=== PATIENT | male | born 1950 | race Caucasian/White ===

== ENCOUNTER 2018-04-02 00:34 | Outpatient (CLI) | payer MEDICARE, BC, SELFPAY ==
--- NOTE | 2018-04-02 07:05 | DI.US_ITS ---
SYMPTOM/DIAGNOSIS: RT SIDED ABD SWELLING, R19.00 ABDOMEN ULTRASOUND: Routine examination was performed. The aorta and IVC are unremarkable. There is diffuse increased echogenicity of the liver consistent with hepatic steatosis. No hepatic mass is seen. The liver is enlarged measuring 20 cm. The gallbladder is negative. There is no biliary ductal dilatation. The common duct is within normal limits at .4 cm. The pancreas and spleen are unremarkable. The kidneys are unremarkable except for a 0.8 cm. simple cyst arising from the mid pole. This was present on the CT scan of the abdomen and pelvis from . The right lateral abdominal wall was evaluated sonographically. No cystic or solid masses are seen. IMPRESSION: Hepatomegaly. Hepatic steatosis.
== END 2018-04-02 00:54 ==
PROVIDERS: PCP Nurse Practitioner Family; Visit Provider Nurse Practitioner Family
DX: K76.0 Fatty (change of) liver, not elsewhere classified (principal); R16.0 Hepatomegaly, not elsewhere classified; R19.00 Intra-abdominal and pelvic swelling, mass and lump, unspecified site
CPT/HCPCS: 76700

== ENCOUNTER 2018-04-04 14:12 | Inpatient (IN) | payer MEDICARE, BC, SELFPAY ==
[2018-04-04] VITALS (59 sets, daily range): BP systolic 115–160; BP diastolic 66–92; PULSE 51–185; RESP 12–22; TEMP 36.1–36.7; O2SAT 89–98
--- NOTE | 2018-04-04 14:25 | W.ED.GENAD ---
Discharge Plan Disposition Patient Disposition: [facility] INPATIENT Condition: Serious Discharge Details Chief Complaint: Chest Pain Clinical Impression: Supraventricular tachycardia, Hypomagnesemia, Chest pain Primary Care Provider: Ashanti Delgadillo ED Provider: Jhony Charlton Home Meds and New Rx's Prescriptions: No Action uazgwpdv-qgwlp-ojs 2-C-D3-paolo [Xsxbxjbc-Iuntdw-DFR with vit D] 1 EACH tablet 2 ea PO DAILY RF: 0 ibuprofen [Advil] 200 MG tablet 800 mg PO TID PRNRF: 0 omega-3 fatty acids-fish oil [Fish Oil] 1 EACH capsule 1 ea PO TID Qty: 90 RF: 3 aspirin 81 MG tablet,delayed release (DR/EC) 81 mg PO DAILY RF: 0 sildenafil (antihypertensive) 20 MG tablet 20 mg PO DAILY PRNQty: 10 RF: 0 blood-glucose meter 1 EACH misc 1 ea Miscellaneous DAILY Qty: 1 RF: 0 blood sugar diagnostic [Blood Glucose Test] 1 EACH strip 1 ea Miscellaneous DAILY Qty: 100 RF: 3 lancets 1 EACH misc 1 ea Miscellaneous DAILY Qty: 100 RF: 3 losartan-hydrochlorothiazide 1 EACH tablet 1 tab-cap PO DAILY Qty: 90 RF: 3 gabapentin 800 MG tablet 800 mg PO as directed Qty: 360 RF: 3 atorvastatin 80 MG tablet 80 mg PO DAILY Qty: 90 RF: 3 cholecalciferol (vitamin D3) 5,000 UNIT capsule 2 tab PO DAILY RF: 0 Medical Decision Making 14:30 --patient seen immediately on arrival. 67-year-old male with history of hypertension and diabetes here with chest discomfort, palpitations, dizziness and shortness of breath. Patient was noted to be in a regular narrow complex tachycardia with heart rate in the 180s on bedside personnel monitor. Rhythm consistent with SVT. Patient had significant stress related to IV placement and I believe spontaneously cardioverted himself by vagaling. Transition from supraventricular tachycardia to sinus rhythm captured on monitor. ecg post spontaneous cardioversion reviewed and interpreted by me: Sinus tachycardia 107 bpm, left axis, no STEMI, nondiagnostic. Patient is quite anxious and notes history of white coat syndrome, plan to treat with anxiolytic Ativan 1 mg IV. 15:45 --labs reviewed and hypomagnesemia noted. Will give 1 g IV magnesium. D-dimer is elevated. Plan for CTA. 18:35 --CT head interpreted by radiology: No evidence of pulmonary embolism, no dissection, or other acute cardiopulmonary abnormality, mild atherosclerotic disease, to include coronary artery disease, diffuse hepatic steatosis, colonic diverticulosis, tiny low density nodule located in left lobe of thyroid, peripheral linear and groundglass opacities are consistent with atelectasis/scarring. Plan to admit to the hospitalist service for further diagnostic workup to include serial cardiac enzymes. Still unclear etiology for SVT but hypomagnesemia may have contributed. HPI General Mode of arrival: ambulatory. Date/Time Provider Initiated Documentation: 04/04/18 14:17. Limitations to Documentation: no limitations. Information obtained by: patient. HPI Narrative: 67-year-old male with history of diabetes and hypertension, presents with chief complaint of chest pain. Patient notes chest discomfort described as pressure for the past 1-2 hours. Symptoms are persistent and constant. He has associated shortness of breath and dizziness. He also notes palpitations. Symptoms occurred at rest. No modifiers. Related Data Home Medications Medication Instructions Recorded Confirmed wmtcyqre-mkbll-iot 2-C-D3-paolo 2 ea PO DAILY 11/30/12 04/04/18 [Baixdgvnmv-Ntdjseystte-Dsw Tab] ibuprofen [Advil] 800 mg PO TID PRN tab 06/17/13 04/04/18 omega-3 fatty acids-fish oil [Fish 1 ea PO TID #90 tab-cap 09/18/15 04/04/18 Oil 1,000 Mg Capsule] aspirin 81 mg PO DAILY tab 07/22/16 04/04/18 cholecalciferol (vitamin D3) 2 tab PO DAILY 01/09/17 04/04/18 sildenafil (antihypertensive) 20 mg PO DAILY PRN #10 tab-cap 03/12/17 04/01/18 blood sugar diagnostic [Glucose #100 strip 08/24/17 04/01/18 Test Strip] blood-glucose meter #1 unit 08/24/17 04/01/18 lancets #100 ea 08/24/17 04/01/18 losartan-hydrochlorothiazide 1 tab-cap PO DAILY #90 tab-cap 10/30/17 04/04/18 gabapentin 800 mg PO as directed #360 tab-cap 12/31/17 04/04/18 atorvastatin 80 mg PO DAILY #90 tab-cap 01/08/18 04/04/18 Previous Rx's Medication Instructions Recorded blood sugar diagnostic [Glucose #100 strip 08/24/17 Test Strip] blood-glucose meter #1 unit 08/24/17 lancets #100 ea 08/24/17 losartan-hydrochlorothiazide 1 tab-cap PO DAILY #90 tab-cap 10/30/17 gabapentin 800 mg PO as directed #360 tab-cap 12/31/17 atorvastatin 80 mg PO DAILY #90 tab-cap 01/08/18 Allergies Allergy/AdvReac Type Severity Reaction Status Date / Time Penicillins Allergy Unknown childhood Unverified 04/04/18 14:32 reaction diltiazem AdvReac Intermediate Swelling/Ed Unverified 04/04/18 14:32 harish lisinopril AdvReac Unknown unknown Unverified 04/04/18 14:32 Review of Systems Review of Systems All systems reviewed & are unremarkable except as noted in HPI and below Cardiovascular Reports as per HPI, Reports chest pain, Reports palpitations and Reports dyspnea Respiratory Reports as per HPI and Reports dyspnea Endocrine Reports palpitations Exam Const General: cooperative and acute distress [facility] Head: normocephalic and atraumatic Mouth: moist mucous membranes Eyes Conjunctivae: normal conjunctivae Sclera: normal sclerae EOM: EOM intact bilaterally Neck Neck: trachea midline and supple Resp Auscultation: clear to auscultation bilaterally, no rales, no rhonchi and no wheezes Cardio Jugular venous pressure: no JVD Rate: regular rate and tachycardic (180) Rhythm: regular rhythm GI Palpation: soft, not firm, no guarding, no masses, not rigid and nontender Skin General skin exam: no rashes or lesions noted Neuro General: alert, awake, oriented x3 and tone normal Extrem General: no edema Psych Appearance: grossly normal Mental Status: mental status grossly normal Speech and Movement: speech and movement normal Mood: anxious mood
--- NOTE | 2018-04-04 14:29 | ED.GENADUL_ITS ---
Discharge Plan Disposition Patient Disposition: [facility] INPATIENT Condition: Serious Discharge Details Chief Complaint: Chest Pain Clinical Impression: Supraventricular tachycardia, Hypomagnesemia, Chest pain Primary Care Provider: Ashanti Delgadillo ED Provider: Jhony Charlton Home Meds and New Rx's Prescriptions: No Action fdjejbgg-ighbr-eyw 2-C-D3-paolo [Uymelgqi-Ostpwc-KCD with vit D] 1 EACH tablet 2 ea PO DAILY RF: 0 ibuprofen [Advil] 200 MG tablet 800 mg PO TID PRNRF: 0 omega-3 fatty acids-fish oil [Fish Oil] 1 EACH capsule 1 ea PO TID Qty: 90 RF: 3 aspirin 81 MG tablet,delayed release (DR/EC) 81 mg PO DAILY RF: 0 sildenafil (antihypertensive) 20 MG tablet 20 mg PO DAILY PRNQty: 10 RF: 0 blood-glucose meter 1 EACH misc 1 ea Miscellaneous DAILY Qty: 1 RF: 0 blood sugar diagnostic [Blood Glucose Test] 1 EACH strip 1 ea Miscellaneous DAILY Qty: 100 RF: 3 lancets 1 EACH misc 1 ea Miscellaneous DAILY Qty: 100 RF: 3 losartan-hydrochlorothiazide 1 EACH tablet 1 tab-cap PO DAILY Qty: 90 RF: 3 gabapentin 800 MG tablet 800 mg PO as directed Qty: 360 RF: 3 atorvastatin 80 MG tablet 80 mg PO DAILY Qty: 90 RF: 3 cholecalciferol (vitamin D3) 5,000 UNIT capsule 2 tab PO DAILY RF: 0 Medical Decision Making 14:30 --patient seen immediately on arrival. 67-year-old male with history of hypertension and diabetes here with chest discomfort, palpitations, dizziness and shortness of breath. Patient was noted to be in a regular narrow complex tachycardia with heart rate in the 180s on bedside engine monitor. Rhythm consistent with SVT. Patient had significant stress related to IV placement and I believe spontaneously cardioverted himself by vagaling. Transition from supraventricular tachycardia to sinus rhythm captured on monitor. ecg post spontaneous cardioversion reviewed and interpreted by me: Sinus tachycardia 107 bpm, left axis, no STEMI, nondiagnostic. Patient is quite anxious and notes history of white coat syndrome, plan to treat with anxiolytic Ativan 1 mg IV. 15:45 --labs reviewed and hypomagnesemia noted. Will give 1 g IV magnesium. D-dimer is elevated. Plan for CTA. 18:35 --CT head interpreted by radiology: No evidence of pulmonary embolism, no dissection, or other acute cardiopulmonary abnormality, mild atherosclerotic disease, to include coronary artery disease, diffuse hepatic steatosis, colonic diverticulosis, tiny low density nodule located in left lobe of thyroid, peripheral linear and groundglass opacities are consistent with atelectasis/ scarring. Plan to admit to the hospitalist service for further diagnostic workup to include serial cardiac enzymes. Still unclear etiology for SVT but hypomagnesemia may have contributed. HPI General Mode of arrival: ambulatory . Date/Time Provider Initiated Documentation: 04/04/18 14:17 . Limitations to Documentation: no limitations . Information obtained by: patient . HPI Narrative: 67-year-old male with history of diabetes and hypertension, presents with chief complaint of chest pain. Patient notes chest discomfort described as pressure for the past 1-2 hours. Symptoms are persistent and constant. He has associated shortness of breath and dizziness. He also notes palpitations. Symptoms occurred at rest. No modifiers. Related Data Home Medications Medication Instructions Recorded Confirmed spoyhzwh-udozi-dqd 2-C-D3-paolo 2 ea PO DAILY 11/30/12 04/04/18 [Oxlkejembj-Eppjhfwcefc-Lun Tab] ibuprofen [Advil] 800 mg PO TID PRN tab 06/17/13 04/04/18 omega-3 fatty acids-fish oil [Fish 1 ea PO TID #90 tab-cap 09/18/15 04/04/18 Oil 1,000 Mg Capsule] aspirin 81 mg PO DAILY tab 07/22/16 04/04/18 cholecalciferol (vitamin D3) 2 tab PO DAILY 01/09/17 04/04/18 sildenafil (antihypertensive) 20 mg PO DAILY PRN #10 tab-cap 03/12/17 04/01/18 blood sugar diagnostic [Glucose #100 strip 08/24/17 04/01/18 Test Strip] blood-glucose meter #1 unit 08/24/17 04/01/18 lancets #100 ea 08/24/17 04/01/18 losartan-hydrochlorothiazide 1 tab-cap PO DAILY #90 tab-cap 10/30/17 04/04/18 gabapentin 800 mg PO as directed #360 tab-cap 12/31/17 04/04/18 atorvastatin 80 mg PO DAILY #90 tab-cap 01/08/18 04/04/18 Previous Rx's Medication Instructions Recorded blood sugar diagnostic [Glucose #100 strip 08/24/17 Test Strip] blood-glucose meter #1 unit 08/24/17 lancets #100 ea 08/24/17 losartan-hydrochlorothiazide 1 tab-cap PO DAILY #90 tab-cap 10/30/17 gabapentin 800 mg PO as directed #360 tab-cap 12/31/17 atorvastatin 80 mg PO DAILY #90 tab-cap 01/08/18 Allergies Allergy/AdvReac Type Severity Reaction Status Date / Time Penicillins Allergy Unknown childhood Unverified 04/04/18 14:32 reaction diltiazem AdvReac Intermediate Swelling/Ed Unverified 04/04/18 14:32 harish lisinopril AdvReac Unknown unknown Unverified 04/04/18 14:32 Review of Systems Review of Systems All systems reviewed & are unremarkable except as noted in HPI and below Cardiovascular Reports as per HPI, Reports chest pain, Reports palpitations and Reports dyspnea Respiratory Reports as per HPI and Reports dyspnea Endocrine Reports palpitations Exam Const General: cooperative and acute distress [facility] Head: normocephalic and atraumatic Mouth: moist mucous membranes Eyes Conjunctivae: normal conjunctivae Sclera: normal sclerae EOM: EOM intact bilaterally Neck Neck: trachea midline and supple Resp Auscultation: clear to auscultation bilaterally, no rales, no rhonchi and no wheezes Cardio Jugular venous pressure: no JVD Rate: regular rate and tachycardic (180) Rhythm: regular rhythm GI Palpation: soft, not firm, no guarding, no masses, not rigid and nontender Skin General skin exam: no rashes or lesions noted Neuro General: alert, awake, oriented x3 and tone normal Extrem General: no edema Psych Appearance: grossly normal Mental Status: mental status grossly normal Speech and Movement: speech and movement normal Mood: anxious mood
[2018-04-04 14:38] LABS: Abs Immature Grans 0.03 k/cumm (0.0-0.09); Absolute Basophil Count 0.05 k/cumm (0.0-0.2); Absolute Lymphocyte Count 2.44 k/cumm (1.2-3.4); Absolute Monocyte Count 1.11 k/cumm (0.11-0.7); Basophils % 0.4; Eosinophils % 2.3; Immature Grans % 0.3; Lymphocytes % 20.4; Mean Corpuscular Volume 91.1 fL (80-95); Mean Platelet Volume 9.7 fL (8.0-11.0); Monocytes % 9.3; Neutrophils % 67.3; Platelet Count 242 x1000/uL (130-400); RBC 5.49 m/cumm (4.50-6.00); RBC Distribution Width 13.6 % (11.8-14.1); White Blood Cell Count 11.97 k/cumm (4.4-10.8)
[2018-04-04 14:39] LABS: Absolute Eosinophil Count 0.28 k/cumm (0.0-0.7); Absolute Neutrophil Count 8.06 k/cumm (1.2-6.7)
[2018-04-04] MEDS: LORazepam 2 MG/ML VIAL 1 MG IVP ×2 (14:56→15:53)
[2018-04-04 15:02] LABS: ALT 51 U/L (12-78); AST 40 U/L (15-37); Albumin 3.7 g/dL (3.4-5.0); Alkaline Phosphatase 81 U/L (46-116); Anion Gap 15.4 mmol/L (3-11); BUN 25 mg/dL (7-18); Bilirubin, Total 0.9 mg/dL (0.2-1.0); CO2 21.6 mmol/L (21.0-32.0); CREATININE 1.21 mg/dL (0.70-1.30); Chloride 104 mmol/L (98-107); Estimated GFR 59.46 (mL/min/1.73m2); Glucose 172 mg/dL (70-100); Magnesium 1.7 mg/dL (1.8-2.4); Potassium 3.8 mmol/L (3.5-5.1); Sodium 141 mmol/L (136-145); TSH (W/Ref FT4) 1.62 uIU/mL (0.358-3.74); Total Protein 6.9 g/dL (6.4-8.2)
[2018-04-04 15:03] LABS: Troponin I < 0.02 ng/mL (0.00-0.06)
[2018-04-04 15:10] LABS: D-Dimer 791 ng/mlFEU (<500)
--- NOTE | 2018-04-04 15:43 | DI.CT_ITS ---
SYMPTOM/DIAGNOSIS: TACHYCARDIA, CHEST PAIN, ELEVATED D DIMER PE CHEST CT: CT angiography was performed with multi slice acquisition and multi planar and 3D reconstruction. CT scan of the chest was performed according to the pulmonary embolus protocol. No priors for comparison. There is no evidence of a pulmonary embolus. There is atherosclerosis of the thoracic aorta but no evidence of thoracic aortic dissection or aneurysm. Heart size is within normal limits. No significant pericardial effusion is seen. No findings to suggest right ventricular dysfunction. No significant mediastinal or hilar adenopathy, pleural or pericardial effusion is seen. There are areas of atelectasis seen in the dependent portions of the lungs. No focal consolidating infiltrates, pulmonary nodules or pneumothorax is identified. The tracheobronchial tree is unremarkable. Incidental note is made of a 5 mm. low density nodule in the left lobe of the thyroid gland. Upper abdominal images show no acute abnormality. There does appear to be some decreased attenuation of the liver suggesting hepatic steatosis. IMPRESSION: No evidence of a pulmonary embolus, thoracic aortic dissection or aneurysm.
[2018-04-04] MEDS: Normal Saline 1,000 ML 125 ML IV (16:43)
[2018-04-04] MEDS: MAGNESIUM SULFATE 1 GM/100 ML BAG IVPB (16:45)
[2018-04-04] MEDS: Omnipaque 350 MG/ML 100 ML BTL IJ (18:15)
[2018-04-04] MEDS: Lactated Ringers 500 ML IV (18:15)
--- NOTE | 2018-04-04 18:32 | DI.VRAD_ITS ---
EXAM: CT Angiography Chest With Intravenous Contrast EXAM DATE/TIME: 04/04/2018 3:44 PM CLINICAL HISTORY: 67 years old, male; Pain and abnormal findings; Abnormal diagnostic tests; Elevated d-dimer; Chest pain; Type not specified; Patient HX: Tachycardia, chest pain, elevated ddimer TECHNIQUE: Axial computed tomographic angiography images of the chest with intravenous contrast using CT angiography protocol. Coronal and sagittal reformatted images were created and reviewed. MIP reconstructed images were created and reviewed. COMPARISON: CR CHEST 2 VIEWS PA,LAT 12/18/2017 11:25 AM FINDINGS: Pulmonary arteries: Normal. No pulmonary emboli. Aorta: Mild calcified and noncalcified plaques are present in the thoracic aorta. There is no thoracic aortic aneurysm or evidence of dissection. Lungs: Peripheral linear and ground glass opacities are consistent with atelectasis/scarring. No focal airspace consolidation is seen. Central airways are clear. Pleural space: Normal. No pneumothorax. No pleural effusion. Heart: Coronary artery calcifications are present. There is no cardiomegaly or pericardial effusion. Mediastinum: There is mediastinal lipomatosis. Thyroid: Tiny low-density nodule noted in the left lobe of the thyroid. Bones/joints: Multilevel spondylosis is present in the mid to lower thoracic spine. No acute fractures are seen. Soft tissues: Unremarkable. Lymph nodes: Unremarkable. No enlarged lymph nodes. Liver: There is a diffuse decrease in hepatic parenchymal density, consistent with fatty infiltration. Stomach and bowel: Colonic diverticulosis is noted. IMPRESSION: 1. No evidence of pulmonary embolism or other acute cardiopulmonary abnormality. 2. Mild atherosclerotic disease, to include coronary artery disease. 3. Diffuse hepatic steatosis, colonic diverticulosis, and other chronic findings as above. Dictated and Authenticated by: Parvez Medina MD. Ordering:NORMA SIM MD
--- NOTE | 2018-04-04 19:20 | HPE_ITS ---
Date of service: 04/04/18 Time of Service: 19:21 Assessment and Plan (1) PSVT (paroxysmal supraventricular tachycardia): Start date: 04/04/18 Current visit: Yes Status: Acute Patient had palpitations and chest pain with rest after heavy exertion without chest pain during the day. The chest pain was atypical for typical angina pectoris and probably associated with his elevated heart rate with his initial troponin negative and his second troponin intermediate probably secondary to strain with his episode of PSVT which was prolonged until he came to the ED hours after onset. He will have serial cardiac enzymes and cardiology consultation for evaluation of morning. We also started him on low- dose metoprolol and held his hydrochlorothiazide with continuation of losartan. He is a full code and this will be respected with the patient a candidate for cardiac catheterization if he has continued elevation of his troponins are recurrent chest pain. (2) Chest pain: Start date: 04/04/18 Current visit: Yes Status: Acute This is probably rate related after exertion and did not come on with exertion as reviewed under PSVT discussion. Evaluation as discussed with PSVT and cardiology consultation. EKG did not reveal ST segment elevations and will be follow-up if he has recurrent chest pain. He is a candidate for cardiac catheterization if he has persistent symptoms with his CTA revealing some CAD by imaging. He has had no previous history of heart disease or heart failure no previous MIs. History of Present Illness Chief Complaint: Palpitations with atypical chest pain. 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 He began to have palpitations which he has had about a year ago without associated symptoms at that time. This episode was associated with shortness of breath and unclear thinking but no nausea or vomiting, no diaphoresis no radiation of his pain. May have had slight dyspnea with previous episode but once again this was less severe. With his previous episode he was not evaluated but this time it persisted and even though he went inside and sat down the drink of water he persisted with symptoms prompted his to bring him to the ED for evaluation. In the ED he was found to have SVT which spontaneously resolved with the stress of IV being started and some vagal. He was started on low-dose metoprolol when he was brought to [facility]. He has had no previous history of CAD and no strong family history of CAD. He is overweight and is prediabetic nontreatment does have hyperlipidemia. CTA was performed in the ED and this was negative though did show some atherosclerotic disease of the coronary arteries. At the time I saw the patient was comfortable with no symptoms and no recurrence of palpitations or chest pain. On telemetry he has been normal sinus rhythm. Review of systems positive for being overweight though is very active and not restricted with this. 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 He has not had diabetes in the past. He denies any localizing neurological complaints , no GI or complaints. He does have some arthritic complaints along with his neuropathy. Review of Systems Review of Systems As per HPI otherwise unrevealing. 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 (Chronic 07/03/15) Hyperlipidemia, unspecified (Chronic 03/13/03) Essential hypertension (Chronic 02/15/13) Erectile dysfunction (Chronic 03/12/17) Diverticulosis of large intestine without diverticulitis (Chronic 01/06/12) Cubital tunnel syndrome, bilateral (Chronic 10/20/16) Carpal tunnel syndrome, bilateral (Chronic 07/12/14) Abnormal ECG (Chronic 01/03/13) Bicipital tendinitis, right shoulder (Resolved) Complete rotator cuff tear or rupture of right shoulder, not specified as traumatic (Resolved) Adult BMI > 30 GERD (gastroesophageal reflux disease) HLD (hyperlipidemia) HTN (hypertension) OA (osteoarthritis) CHRISS (obstructive sleep apnea) Social History Smoking/Tobacco Use Status: Current-Occasional Surgical History Colonoscopy - MAC (09/10/16) Hemorrhoidal Banding (01/14/17) Hemorrhoidal Banding (04/14/17) Open Carpal Tunnel release (01/09/16) Open Carpal Tunnel release (~08/2017) Replacement of total knee joint (01/24/13) bilateral eye surgery (03/08/15) Meds Home Medications Medication Instructions Recorded Confirmed Type orvnvmjy-lfclg-wqx 2-C-D3-paolo 2 ea PO DAILY 11/30/12 04/04/18 History [Bcvipgfmrt-Huymwhzlpxd-Mmc Tab] ibuprofen [Advil] 800 mg PO TID PRN tab 06/17/13 04/04/18 History omega-3 fatty acids-fish oil [Fish 1 ea PO TID #90 tab-cap 09/18/15 04/04/18 History Oil 1,000 Mg Capsule] aspirin 81 mg PO DAILY tab 07/22/16 04/04/18 History cholecalciferol (vitamin D3) 2 tab PO DAILY 01/09/17 04/04/18 History sildenafil (antihypertensive) 20 mg PO DAILY PRN #10 tab-cap 03/12/17 04/01/18 History blood sugar diagnostic [Glucose #100 strip 08/24/17 04/01/18 Rx Test Strip] blood-glucose meter #1 unit 08/24/17 04/01/18 Rx lancets #100 ea 08/24/17 04/01/18 Rx losartan-hydrochlorothiazide 1 tab-cap PO DAILY #90 tab-cap 10/30/17 04/04/18 Rx gabapentin 800 mg PO as directed #360 tab-cap 12/31/17 04/04/18 Rx atorvastatin 80 mg PO DAILY #90 tab-cap 01/08/18 04/04/18 Rx Allergies Allergy/AdvReac Type Severity Reaction Status Date / Time Penicillins Allergy Unknown childhood Unverified 04/04/18 14:32 reaction diltiazem AdvReac Intermediate Swelling/Ed Unverified 04/04/18 14:32 harish lisinopril AdvReac Unknown unknown Unverified 04/04/18 14:32 Exam Narrative Exam Narrative: General: Patient appears slightly uncomfortable in bed with his head elevated but is awake, alert and oriented ?3. No acute distress. Slightly flattened affect though he was awakened with exam. HEENT: Normocephalic with eyes revealing pupils equal reactive to light symmetrically and extraocular movement intact. There is normal. Oropharynx with slightly dry oral mucosa. Neck: Supple, without JVD and no auscultated bruits. Back: Posterior with no CVA tenderness. Lungs: Clear to auscultation percussion without rales or rhonchi and normal inspiratory to expiratory phase ratio without expiratory wheeze. Heart: Distant heart sounds, regular rate and rhythm without murmur or gallop appreciated. Abdomen: Protuberant, obese but soft to palpation without tenderness or palpable hepatosplenomegaly. Genitalia rectal exam: Deferred. Extremities nonpitting edema with swelling of the joints without effusions with well-healed scar over the left knee from previous TKA. No cyanosis and no clubbing. Peripheral pulses are decreased but intact with good capillary refill. Skin: Well tanned over sun exposed areas, no lesions or rashes. Neuro: Decreased sensation both lower extremities to fine touch, no focal motor deficits, cranial nerves II through XII grossly intact. Psych: Membranes normal, thought processes normal with affect improved that the patient was awake during the exam. Results Labs : 04/04/18 14:15 04/04/18 14:15 Laboratory Results - last 24 hr 04/04/18 04/04/18 04/04/18 14:15 14:15 14:15 WBC 11.97 H RBC 5.49 Hgb 17.0 Hct 50.0 MCV 91.1 MCH 31.0 MCHC 34.0 RDW 13.6 Plt Count 242 MPV 9.7 Abs Immat Gran (auto) Immature Gran % 0.3 Neutrophils % 67.3 Lymphocytes % 20.4 Monocytes % 9.3 Eosinophils % 2.3 Basophils % 0.4 Absolute Neutrophils 8.06 H Band Neutrophils Absolute Lymphocytes 2.44 Absolute Monocytes 1.11 H Absolute Eosinophils 0.28 Absolute Basophils 0.05 Metamyelocytes Myelocytes Promyelocytes Nucleated RBCs Differential Comment Atypical Lymphocytes Other Cell Type RBC Morphology Polychromasia Hypochromasia Poikilocytosis Basophilic Stippling Anisocytosis Microcytosis Macrocytosis Spherocytes Target Cells Tear Drop Cells Ovalocytes Stomatocytes [place] Bodies [place] Cells Acanthocytes (Spur) Schistocytes D-Dimer 791 H Sodium 141 Potassium 3.8 Chloride 104 Carbon Dioxide 21.6 Anion Gap 15.4 H BUN 25 H Creatinine 1.21 Estimated GFR/1.73 m2 59.46 Glucose 172 H Calcium 9.0 Magnesium 1.7 L Total Bilirubin 0.9 Conjugated Bilirubin 0.20 AST 40 H ALT 51 Alkaline Phosphatase 81 Troponin I < 0.02 Total Protein 6.9 Albumin 3.7 TSH 1.62 04/04/18 04/04/18 04/04/18 15:59 16:00 16:00 WBC Cancelled RBC Cancelled Hgb Cancelled Hct Cancelled MCV Cancelled MCH Cancelled MCHC Cancelled RDW Cancelled Plt Count Cancelled MPV Cancelled Abs Immat Gran (auto) Cancelled Immature Gran % Cancelled Neutrophils % Cancelled Lymphocytes % Cancelled Monocytes % Cancelled Eosinophils % Cancelled Basophils % Cancelled Absolute Neutrophils Cancelled Band Neutrophils Cancelled Absolute Lymphocytes Cancelled Absolute Monocytes Cancelled Absolute Eosinophils Cancelled Absolute Basophils Cancelled Metamyelocytes Cancelled Myelocytes Cancelled Promyelocytes Cancelled Nucleated RBCs Cancelled Differential Comment Cancelled Atypical Lymphocytes Cancelled Other Cell Type Cancelled RBC Morphology Cancelled Polychromasia Cancelled Hypochromasia Cancelled Poikilocytosis Cancelled Basophilic Stippling Cancelled Anisocytosis Cancelled Microcytosis Cancelled Macrocytosis Cancelled Spherocytes Cancelled Target Cells Cancelled Tear Drop Cells Cancelled Ovalocytes Cancelled Stomatocytes Cancelled [place] Bodies Cancelled Sylvia Cells Cancelled Acanthocytes (Spur) Cancelled Schistocytes Cancelled D-Dimer Sodium Cancelled Potassium Cancelled Chloride Cancelled Carbon Dioxide Cancelled Anion Gap Cancelled BUN Cancelled Creatinine Cancelled Estimated GFR/1.73 m2 Cancelled Glucose Cancelled Calcium Cancelled Magnesium Cancelled Total Bilirubin Cancelled Cancelled Conjugated Bilirubin Cancelled AST Cancelled Cancelled ALT Cancelled Cancelled Alkaline Phosphatase Cancelled Cancelled Troponin I Cancelled Total Protein Cancelled Cancelled Albumin Cancelled Cancelled TSH
[2018-04-04] MEDS: Gabapentin 400 MG CAP 1200 MG PO (21:47)
[2018-04-04 21:48] LABS: INR 1.2 (1.0-3.5); Prothrombin Time 11.4 sec (9.3-10.8)
[2018-04-04] MEDS: Metoprolol 25 MG TAB PO (21:48)
[2018-04-04] MEDS: Normal Saline Flush 10 ML SYR IVP (21:49)
[2018-04-04] MEDS: Normal Saline 1,000 ML 100 ML IV (21:57)
[2018-04-05] VITALS (9 sets, daily range): BP systolic 116–157; BP diastolic 73–90; PULSE 46–63; RESP 15–20; TEMP 36.2–36.7; O2SAT 94–97
[2018-04-05 00:04] LABS: Bilirubin Negative (Negative); Blood Negative (Negative); Clarity Clear; Glucose Negative (Negative); Ketones Negative (Negative); Leukocyte Esterase Negative (Negative); Nitrite Negative (Negative); Specific Gravity 1.015 (1.005-1.025); Urobilinogen 0.2 EU/dL (Up TO 0.2); pH 5.5 (5-8)
[2018-04-05 00:26] LABS: Troponin I 0.18 ng/mL (0.00-0.06)
[2018-04-05 07:25] LABS: HCT 46.3 % (40.0-50.0); HGB 15.3 g/dL (13.5-17.5); Mean Corpuscular Hemoglobin 30.8 pg (27.0-33.0); Mean Corpuscular Volume 93.2 fL (80-95); Mean Platelet Volume 9.8 fL (8.0-11.0); Platelet Count 205 x1000/uL (130-400); RBC 4.97 m/cumm (4.50-6.00); RBC Distribution Width 13.8 % (11.8-14.1); White Blood Cell Count 7.48 k/cumm (4.4-10.8)
[2018-04-05 07:47] LABS: ALT 43 U/L (12-78); AST 31 U/L (15-37); Albumin 3.1 g/dL (3.4-5.0); Alkaline Phosphatase 66 U/L (46-116); Anion Gap 9.6 mmol/L (3-11); BUN 19 mg/dL (7-18); Bilirubin, Total 0.9 mg/dL (0.2-1.0); CO2 26.4 mmol/L (21.0-32.0); CREATININE 0.99 mg/dL (0.70-1.30); Calcium 8.4 mg/dL (8.5-10.1); Chloride 104 mmol/L (98-107); Glucose 125 mg/dL (70-100); Magnesium 1.7 mg/dL (1.8-2.4); Potassium 3.8 mmol/L (3.5-5.1); Sodium 140 mmol/L (136-145); Total Protein 6.1 g/dL (6.4-8.2)
[2018-04-05] MEDS: Losartan 25 MG TAB PO (07:53)
[2018-04-05] MEDS: Omega-3 Fatty Acids 1000 MG CAP PO ×3 (07:53→20:10)
[2018-04-05] MEDS: Aspirin E.C. 81 MG TABEC PO (07:53)
[2018-04-05] MEDS: Gabapentin 400 MG CAP 1200 MG PO ×2 (07:55→20:10)
[2018-04-05 08:54] LABS: Hemoglobin A1C 6.6 % (4.5-6.2)
[2018-04-05] MEDS: Magnesium Oxide 400 MG TAB PO (09:46)
[2018-04-05] MEDS: Potassium Chloride 20 MEQ TABCR PO (09:47)
--- NOTE | 2018-04-05 11:11 | PDOC.CMIN ---
- If Service Date Differs Date of service: 04/05/18 Time of Service: 11:11 Care Management Initial Assess REASON FOR HOSPITALIZATION:: Atypical chest pain, PSVT PAST MEDICAL HISTORY/PAST SURGICAL HISTORY:: Osteoarthritis (Chronic 01/06/12). Obesity, unspecified (Chronic 07/03/15). Type 2 diabetes mellitus without complication, without long-term current use of insulin (Chronic 08/24/17). Tubular adenoma of colon (Inactive 09/10/16). Peripheral neuropathy (Chronic 01/25/15). CHRISS (obstructive sleep apnea) (Chronic 09/18/15). Needle phobia (Chronic 11/18/17). 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 Hyperlipidemia, unspecified (Chronic 03/13/03). Essential hypertension (Chronic 02/15/13). Erectile dysfunction (Chronic 03/12/17). Diverticulosis of large intestine without diverticulitis (Chronic 01/06/12). Cubital tunnel syndrome, bilateral (Chronic 10/20/16). Carpal tunnel syndrome, bilateral (Chronic 07/12/14). Abnormal ECG (Chronic 01/03/13). Bicipital tendinitis, right shoulder (Resolved). Complete rotator cuff tear or rupture of right shoulder, not specified as traumatic (Resolved). Adult BMI > 30. GERD (gastroesophageal reflux disease). HLD (hyperlipidemia). HTN (hypertension). OA (osteoarthritis). CHRISS (obstructive sleep apnea). Colonoscopy - MAC (09/10/16). Hemorrhoidal Banding (01/14/17). Hemorrhoidal Banding (04/14/17). Open Carpal Tunnel release (01/09/16). Open Carpal Tunnel release (~08/2017). 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 bilateral eye surgery (03/08/15) PREVIOUS FUNCTIONAL STATUS/SOCIAL/FAMILY SUPPORTS:: Ace resides with his Merari in [place]. He states that they have three children, all whom reside out of state. Ace is independent at baseline, he drives, and manages ADL's CURRENT FUNCTIONAL STATUS:: Ace is sitting in his chair reading when this script writer visits. his Merari is in the room with him. Ace states that he would like to DC home today, CM explained that the hospitalist would meet with him and he could discuss at that time. ADVANCE DIRECTIVES:: None on file Has patient been provided with information about the portal?: Yes Did the patient sign up for the portal?: No CODE STATUS:: Full Code INSURANCE COVERAGE / FINANCIAL ISSUES:: Medicare, BCBS CURRENT HOME/COMMUNITY SERVICES/EQUIPMENT:: Currently Ace has no services in the community. He has a CPAP which is serviced through [facility] PRIMARY CARE PHYSICIAN:: Ashanti Delgadillo POTENTIAL DISCHARGE NEEDS:: F/U appointment with PCP PATIENT/FAMILY EDUCATION NEEDS:: Review DC instructions, any limitations, and ongoing DC planning discussion. review Ask Me Three ANTICIPATED BARRIERS TO DISCHARGE:: None identified at this time. TRANSPORTATION:: Via private vehicle with Merari PLAN:: Ace will return home with no anticipated services. He will F/U with PCP and plan of care as prescribed. Ace' Merari will transport when ready.
--- NOTE | 2018-04-05 11:27 | INITIAL_ITS ---
- If Service Date Differs Date of service: 04/05/18 Time of Service: 11:11 Care Management Initial Assess REASON FOR HOSPITALIZATION:: Atypical chest pain, PSVT PAST MEDICAL HISTORY/PAST SURGICAL HISTORY:: Osteoarthritis (Chronic 01/06/12). Obesity, unspecified (Chronic 07/03/15). Type 2 diabetes mellitus without complication, without long-term current use of insulin (Chronic 08/24/17). Tubular adenoma of colon (Inactive 09/10/16). Peripheral neuropathy (Chronic ). CHRISS (obstructive sleep apnea) (Chronic 09/18/15). Needle phobia ( Chronic 11/18/17). 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 ( Chronic 07/03/15). Hyperlipidemia, unspecified (Chronic 03/13/03). Essential hypertension (Chronic 02/15/13). Erectile dysfunction (Chronic 03/12/17). Diverticulosis of large intestine without diverticulitis (Chronic 01/06/12). Cubital tunnel syndrome, bilateral (Chronic 10/20/16). Carpal tunnel syndrome, bilateral (Chronic 07/12/14). Abnormal ECG (Chronic 01/03/13). Bicipital tendinitis, right shoulder (Resolved). Complete rotator cuff tear or rupture of right shoulder, not specified as traumatic (Resolved). Adult BMI > 30. GERD (gastroesophageal reflux disease). HLD (hyperlipidemia). HTN ( hypertension). OA (osteoarthritis). CHRISS (obstructive sleep apnea). Colonoscopy - MAC (09/10/16). Hemorrhoidal Banding (01/14/17). Hemorrhoidal Banding (04/14/17). Open Carpal Tunnel release (01/09/16). Open Carpal Tunnel release (~08/2017). 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 bilateral eye surgery (03/08/15) PREVIOUS FUNCTIONAL STATUS/SOCIAL/FAMILY SUPPORTS:: Ace resides with his Merari in [place]. He states that they have three children, all whom reside out of state. Ace is independent at baseline, he drives, and manages ADL's CURRENT FUNCTIONAL STATUS:: Ace is sitting in his chair reading when this leader writer visits. his Merari is in the room with him. Ace states that he would like to DC home today, CM explained that the hospitalist would meet with him and he could discuss at that time. ADVANCE DIRECTIVES:: None on file Has patient been provided with information about the portal?: Yes Did the patient sign up for the portal?: No CODE STATUS:: Full Code INSURANCE COVERAGE / FINANCIAL ISSUES:: Medicare, BCBS CURRENT HOME/COMMUNITY SERVICES/EQUIPMENT:: Currently Ace has no services in the community. He has a CPAP which is serviced through [facility] PRIMARY CARE PHYSICIAN:: Ashanti Delgadillo POTENTIAL DISCHARGE NEEDS:: F/U appointment with PCP PATIENT/FAMILY EDUCATION NEEDS:: Review DC instructions, any limitations, and ongoing DC planning discussion. review Ask Me Three ANTICIPATED BARRIERS TO DISCHARGE:: None identified at this time. TRANSPORTATION:: Via private vehicle with Merari PLAN:: Ace will return home with no anticipated services. He will F/U with PCP and plan of care as prescribed. Ace' Merari will transport when ready.
[2018-04-05] MEDS: Metoprolol 25 MG TAB PO (11:51)
[2018-04-05] MEDS: Gabapentin 800 MG TAB PO (11:51)
--- NOTE | 2018-04-05 12:43 | PHARADMIT ---
Admission Pharmacy Clinical Review Code Status Full Code Current Weight Wgt- 140.614 kg Renally Cleared and Narrow Therapeutic Index Meds CrCl~ 75 mL/min Meds-OK QTc Value / Action Taken NA BP Control, Fever BP- 1418/85 Tmax- 36.2C Electrolytes reviewed Na- 140 K+3.8 Mag- 1.7 DVT Prophylaxis Lovenox 40mg Opiate Usage / Scheduled Bowel Regimen Ordered No Yes Plt/SCr for Heparin / Enoxaparin Plts-205 SCr-0.99 INR for Warfarin inr-1.2 H/H stable, WBC/Bands H&H- 15.3/46.3 WBC- 7.48 Antibiotic appropriateness NONE Cultures and Sensitivities NONE Surgical ABX d/c within 24 hr NA DM control / Insulin Dosing BG- 125 EnY9z-4.6, Aspart Heart Failure (Check EF%) (LUPILLO's, B-Block, Diuretics) Losartan, Lopressor IV to PO Switch No Home Meds Reviewed Yes Home Meds Not Ordered Vit-D, HCTZ, Advil, Sildenafil, Comments PatOwn Glucosamine/Chondroitin,MSM Plus
--- NOTE | 2018-04-05 14:56 | PGE_ITS ---
Date of service: 04/05/18 Time of Service: 14:55 Assessment and Plan (1) PSVT (paroxysmal supraventricular tachycardia): Current visit: Yes Status: Acute One episode of supraventricular tachycardia that self resolved as he was getting an IV in the emergency department, likely secondary to vagal response. Metoprolol was scheduled every 8 hours, however he developed both nocturnal and daytime bradycardia with heart rates in the 40-50 bpm range. Metoprolol changed to 25 mg p.o. twice daily. Continue telemetry. No further SVT currently. May have some degree of sinus node dysfunction underlying as he is barely tolerant of low-dose metoprolol. If this continues to be a problem could consider cardiology referral to discuss SVT ablation. Interestingly he developed a fair amount of chest discomfort with elevated heart rates which is somewhat concerning for underlying coronary disease. This becomes even more important consideration given his multiple risk factors including hypertension, obesity, diabetes, hyperlipidemia. Recommended nuclear stress test as an inpatient for further risk stratification. If moderate or severe defect would consider cardiac catheterization as an outpatient. Will also need further cardiac monitoring with a ZioPatch. (2) Chest pain: Current visit: Yes Status: Acute This is probably rate related after exertion and did not come on with exertion as reviewed under PSVT discussion. Evaluation as discussed with PSVT and cardiology consultation. EKG did not reveal ST segment elevations and will be follow-up if he has recurrent chest pain. He is a candidate for cardiac catheterization if he has persistent symptoms with his CTA revealing some CAD by imaging. He has had no previous history of heart disease or heart failure no previous MIs. Subjective Patient reports: no new complaints Interval history since last seen: 67 yo with SVT and reported CP after 4-5 hours of physical exertion. Ace reports he has had no further symptoms currently. He is hoping to go home because he and his are supposed to fly to [place] on . It has been suggested to the patient in the past that he has diabetes, however he has wanted to hold off on starting therapy for it until his blood sugars were a bit higher. Apparently he had a reported fasting blood sugar of 107 and was told he was prediabetic ROS: 10 point ROS obtained with pertinent positives noted in HPI, otherwise negative. Exam Narrative Exam Narrative: General: 67 yo obese male. Well developed and well nourished. No acute distress. A/Ox3. Pleasant and cooperative. HEENT: Normocephalic, Atraumatic. Conjunctiva clear, sclera non-icteric. PERRL. EOMI. Moist mucous membranes, oropharynx clear. Neck supple, no JVD, thyromegaly or lymphadenopathy. Cardiovascular: Regular rate and rhythm, S1S2, no S3 or S4. No murmur, rub, gallop. Respiratory: Chest expansion symmetrical, respirations unlabored. Lungs clear to auscultation, no adventitious breath sounds. GI: Abdomen round, soft, non-tender to palpation. Normoactive bowel sounds in all 4 quadrants. No hepatosplenomegaly or prominent masses. : deferred Extremities: Lower extremities without deformity or edema Neurological: non-focal. CN 2-12 grossly intact. Psychiatric: pleasant and cooperative. Speech clear and articulate. Mood and affect normal. Objective Objective Clinical Data: Abnormal lab results 04/04/18 04/04/18 04/04/18 Range/Units 14:15 14:15 14:15 PT 11.4 H (9.3-10.8) sec D-Dimer 791 H (<500) ng/mlFEU Anion Gap 15.4 H (3-11) mmol/L BUN 25 H (7-18) mg/dL Glucose 172 H (70-100) mg/dL Hemoglobin A1c (4.5-6.2) % Calcium (8.5-10.1) mg/dL Magnesium 1.7 L (1.8-2.4) mg/dL AST 40 H (15-37) U/L Troponin I (0.00-0.06) ng/mL Total Protein (6.4-8.2) g/dL Albumin (3.4-5.0) g/dL 04/04/18 04/04/18 04/05/18 Range/Units 20:25 23:30 07:00 PT (9.3-10.8) sec D-Dimer (<500) ng/mlFEU Anion Gap (3-11) mmol/L BUN 19 H D (7-18) mg/dL Glucose 125 H (70-100) mg/dL Hemoglobin A1c (4.5-6.2) % Calcium 8.4 L (8.5-10.1) mg/dL Magnesium 1.7 L (1.8-2.4) mg/dL AST (15-37) U/L Troponin I 0.20 H 0.18 H 0.10 H (0.00-0.06) ng/mL Total Protein 6.1 L (6.4-8.2) g/dL Albumin 3.1 L (3.4-5.0) g/dL 04/05/18 Range/Units 07:00 PT (9.3-10.8) sec D-Dimer (<500) ng/mlFEU Anion Gap (3-11) mmol/L BUN (7-18) mg/dL Glucose (70-100) mg/dL Hemoglobin A1c 6.6 H (4.5-6.2) % Calcium (8.5-10.1) mg/dL Magnesium (1.8-2.4) mg/dL AST (15-37) U/L Troponin I (0.00-0.06) ng/mL Total Protein (6.4-8.2) g/dL Albumin (3.4-5.0) g/dL Vital Signs Temperature 36.2 C L 04/05/18 11:15 Temperature Source Tympanic 04/05/18 11:15 Pulse 52 L 04/05/18 11:15 Pulse Rhythm Regular 04/05/18 07:40 Pulse 72 04/04/18 19:10 Respiratory Rate 20 04/05/18 11:15 Respiratory Effort Non-Labored 04/05/18 07:40 Respiratory Depth Normal 04/05/18 07:40 Respiratory Pattern Normal 04/05/18 07:40 Blood Pressure 141/85 H 04/05/18 11:15 Blood Pressure Mean 88 04/04/18 19:01 Blood Pressure Position Supine 04/04/18 14:26 Pulse Oximetry 97 04/05/18 11:15 Oxygen Delivery Method Room Air 04/05/18 11:15 Oxygen Flow Rate 0 04/05/18 11:15 Pain Level 0 04/04/18 21:58 Intake & Output 04/04/18 04/05/18 04/05/18 23:59 11:59 23:59 Intake Total 540 / 540 1723.333 / 1723.333 500 / 500 Output Total 400 / 400 Balance 140 / 140 1723.333 / 1723.333 500 / 500 Weight 140.614 kg Intake: IV 983.333 / 983.333 Oral 540 / 540 740 / 740 500 / 500 Output: Urine 400 / 400 Other: Urine Color Yellow [place] Urine Appearance Clear Voiding Methods Urinal Laboratory Results WBC 7.48 k/cumm (4.4-10.8) D 04/05/18 07:00 RBC 4.97 m/cumm (4.50-6.00) 04/05/18 07:00 Hgb 15.3 g/dL (13.5-17.5) 04/05/18 07:00 Hct 46.3 % (40.0-50.0) 04/05/18 07:00 MCV 93.2 fL (80-95) 04/05/18 07:00 MCH 30.8 pg (27.0-33.0) 04/05/18 07:00 MCHC 33.0 g/dL (32.0-36.0) 04/05/18 07:00 RDW 13.8 % (11.8-14.1) 04/05/18 07:00 Plt Count 205 x1000/uL (130-400) 04/05/18 07:00 MPV 9.8 fL (8.0-11.0) 04/05/18 07:00 Abs Immat Gran (auto) Cancelled 04/04/18 16:00 Immature Gran % 0.3 04/04/18 14:15 Neutrophils % 67.3 04/04/18 14:15 Lymphocytes % 20.4 04/04/18 14:15 Monocytes % 9.3 04/04/18 14:15 Eosinophils % 2.3 04/04/18 14:15 Basophils % 0.4 04/04/18 14:15 Absolute Neutrophils 8.06 k/cumm (1.2-6.7) H 04/04/18 14:15 Band Neutrophils Cancelled 04/04/18 16:00 Absolute Lymphocytes 2.44 k/cumm (1.2-3.4) 04/04/18 14:15 Absolute Monocytes 1.11 k/cumm (0.11-0.7) H 04/04/18 14:15 Absolute Eosinophils 0.28 k/cumm (0.0-0.7) 04/04/18 14:15 Absolute Basophils 0.05 k/cumm (0.0-0.2) 04/04/18 14:15 Metamyelocytes Cancelled 04/04/18 16:00 Myelocytes Cancelled 04/04/18 16:00 Promyelocytes Cancelled 04/04/18 16:00 Nucleated RBCs Cancelled 04/04/18 16:00 Differential Comment Cancelled 04/04/18 16:00 Atypical Lymphocytes Cancelled 04/04/18 16:00 Other Cell Type Cancelled 04/04/18 16:00 RBC Morphology Cancelled 04/04/18 16:00 Polychromasia Cancelled 04/04/18 16:00 Hypochromasia Cancelled 04/04/18 16:00 Poikilocytosis Cancelled 04/04/18 16:00 Basophilic Stippling Cancelled 04/04/18 16:00 Anisocytosis Cancelled 04/04/18 16:00 Microcytosis Cancelled 04/04/18 16:00 Macrocytosis Cancelled 04/04/18 16:00 Spherocytes Cancelled 04/04/18 16:00 Target Cells Cancelled 04/04/18 16:00 Tear Drop Cells Cancelled 04/04/18 16:00 Ovalocytes Cancelled 04/04/18 16:00 Stomatocytes Cancelled 04/04/18 16:00 [place] Bodies Cancelled 04/04/18 16:00 [place] Cells Cancelled 04/04/18 16:00 Acanthocytes (Spur) Cancelled 04/04/18 16:00 Schistocytes Cancelled 04/04/18 16:00 PT Cancelled 04/04/18 20:25 INR Cancelled 04/04/18 20:25 D-Dimer 791 ng/mlFEU (<500) H 04/04/18 14:15 Sodium 140 mmol/L (136-145) 04/05/18 07:00 Potassium 3.8 mmol/L (3.5-5.1) 04/05/18 07:00 Chloride 104 mmol/L (98-107) 04/05/18 07:00 Carbon Dioxide 26.4 mmol/L (21.0-32.0) 04/05/18 07:00 Anion Gap 9.6 mmol/L (3-11) 04/05/18 07:00 BUN 19 mg/dL (7-18) H D 04/05/18 07:00 Creatinine 0.99 mg/dL (0.70-1.30) 04/05/18 07:00 Estimated GFR/1.73 m2 >= 60.00 (mL/min/1.73m2) 04/05/18 07:00 Glucose 125 mg/dL (70-100) H 04/05/18 07:00 Hemoglobin A1c 6.6 % (4.5-6.2) H 04/05/18 07:00 Calcium 8.4 mg/dL (8.5-10.1) L 04/05/18 07:00 Magnesium 1.7 mg/dL (1.8-2.4) L 04/05/18 07:00 Total Bilirubin 0.9 mg/dL (0.2-1.0) 04/05/18 07:00 Conjugated Bilirubin 0.20 mg/dL (0.00-0.20) 04/04/18 14:15 AST 31 U/L (15-37) 04/05/18 07:00 ALT 43 U/L (12-78) 04/05/18 07:00 Alkaline Phosphatase 66 U/L (46-116) 04/05/18 07:00 Troponin I 0.10 ng/mL (0.00-0.06) H 04/05/18 07:00 Total Protein 6.1 g/dL (6.4-8.2) L 04/05/18 07:00 Albumin 3.1 g/dL (3.4-5.0) L 04/05/18 07:00 TSH 1.62 uIU/mL (0.358-3.74) 04/04/18 14:15 Urine Color Yellow (Yellow) 04/04/18 23:15 Urine Clarity Clear 04/04/18 23:15 Urine pH 5.5 (5-8) 04/04/18 23:15 Ur Specific [place] 1.015 (1.005-1.025) 04/04/18 23:15 Urine Protein Negative mg/dL (Negative) 04/04/18 23:15 Urine Ketones Negative mg/dL (Negative) 04/04/18 23:15 Urine Blood Negative (Negative) 04/04/18 23:15 Urine Nitrite Negative (Negative) 04/04/18 23:15 Urine Bilirubin Negative (Negative) 04/04/18 23:15 Urine Urobilinogen 0.2 EU/dL (Up TO 0.2) 04/04/18 23:15 Ur Leukocyte Esterase Negative (Negative) 04/04/18 23:15 Urine Glucose Negative mg/dL (Negative) 04/04/18 23:15
--- NOTE | 2018-04-05 15:02 | CHAPLAIN ---
Naman was sitting up in his chair readings [employer] when I stopped in. His was with him. Naman was pleasant and engaged in a conversation but was not interested in a longer conversation.
[2018-04-05] MEDS: Normal Saline 1,000 ML 100 ML IV (17:28)
[2018-04-05] MEDS: Normal Saline Flush 10 ML SYR IVP (18:10)
[2018-04-05] MEDS: Atorvastatin 40 MG TAB 80 MG PO (20:10)
[2018-04-06] VITALS (10 sets, daily range): BP systolic 123–159; BP diastolic 72–90; PULSE 49–59; RESP 15–19; TEMP 35.9–36.9; O2SAT 94–97
[2018-04-06] MEDS: Normal Saline 1,000 ML 100 ML IV (03:08)
[2018-04-06 07:33] LABS: Abs Immature Grans 0.01 k/cumm (0.0-0.09); Absolute Basophil Count 0.04 k/cumm (0.0-0.2); Absolute Eosinophil Count 0.35 k/cumm (0.0-0.7); Absolute Lymphocyte Count 1.83 k/cumm (1.2-3.4); Absolute Monocyte Count 0.89 k/cumm (0.11-0.7); Absolute Neutrophil Count 4.13 k/cumm (1.2-6.7); Basophils % 0.6; Eosinophils % 4.8; HCT 45.2 % (40.0-50.0); HGB 14.8 g/dL (13.5-17.5); Immature Grans % 0.1; Lymphocytes % 25.2; Mean Corp. HGB Concentration 32.7 g/dL (32.0-36.0); Mean Corpuscular Hemoglobin 30.7 pg (27.0-33.0); Mean Corpuscular Volume 93.8 fL (80-95); Mean Platelet Volume 9.8 fL (8.0-11.0); Monocytes % 12.3; Platelet Count 183 x1000/uL (130-400); RBC 4.82 m/cumm (4.50-6.00); RBC Distribution Width 13.7 % (11.8-14.1); White Blood Cell Count 7.25 k/cumm (4.4-10.8)
--- NOTE | 2018-04-06 07:45 | MERGEMPI_ITS ---
*[facility]* *[facility]* [address] [place] [address] Myocardial Perfusion Imaging - SPECT Regadenoson Date of study: 04/06/2018 *PATIENT PRESENTATION* Height: 182.9cm (72in) Blood Pressure: Weight: 140.9kg (310lb) BSA: 2.74m^2 Ordering physician: Samantha Aguero Impressions: - Normal perfusion by Tc99m Sestamibi Imaging. - Abnormal contraction consistent with cardiomyopathy. Summary: 1. Myocardial perfusion imaging: No myocardial perfusion defects noted. 2. The calculated left ventricular ejection fraction after stress: 42%. Diffuse left ventricular regional motion abnormalities. Indication: R07.9. History: REASON FOR VISIT: THIS IS AN INPATIENT THAT WAS ADMITTED ON 04/04/18 FOR PALPITATIONS AND CHEST PAIN WITH REST AFTER HEAVY EXERTION WITHOUT CHEST PAIN DURING THE DAY. IN THE ED HE WAS FOUND TO BE IN PSVT. PT HAS CARDIAC RISK FACTORS: OBESITY, TYPE 2 DIABETES, OBSTRUCTIVE SLEEP APNEA. HYPERLIPIDEMIA, ESSENTIAL HYPERTENSION. PT ALSO IS A CIGAR SMOKER. Risk factors: Current tobacco use. Hypertension. Diabetes mellitus. Obesity. Dyslipidemia. Cholesterol: 157mg/dl. HDL: 38mg/dl. LDL: 97mg/dl. Triglycerides: 185mg/dl. ALLERGIES: PENICILLIN. MEDICATIONS: IBUPROFEN 800 MG TID PRN. ASPIRIN 81 MG DAILY. OMEGA-3 FATTY ACIDS FISH OIL TID. COZAAR 25 MG DAILY. METOPROLOL 25 MG BID. K-DUR 20 MEQ DAILY. [id number]-ILU 0-E-Z2--LOKI 2 DAILY. GABAPENTIN 800 MG AT NOON DAILY. GABAPENTIN 1200 MG BID. VITAMIN D3 2 TABS DAILY. ATORVASTATIN 80 MG DAILY. SILDENAFIL 20 MG DAILY PRN. Imaging Technique: Protocol: Regadenoson. Acquisition: Gated SPECT; 1 day - rest/stress. The patient was imaged in the supine position. Attenuation correction used. Isotope administration: - Rest. Tc[99m]-sestamibi. Dose: 14.3mCi. Injection time: 08:00 AM. Injection to stress time: 00:45. - Stress. Tc[99m]-sestamibi. Dose: 44.8mCi. Injection time: 09:45 AM. 1-2 min before end of exercise Baseline ECG: SINUS RHYTHM. HR 61 BPM. T-WAVES INVERTED IN V1 & V2 LEADS. Stress protocol: +--------+--+ + + + !Stage !HR!BP (mmHg) !Symptoms !Comments ! +--------+--+ + + + !Baseline!61!144/82 (103)! ! ! +--------+--+ + + + !1 min !58!142/90 (107)!Mild chest discomfort!Inject Regadenoson.! +--------+--+ + + + !2 min !--! !Subsiding ! ! +--------+--+ + + + !3 min !69!134/72 (93) !Resolved ! ! +--------+--+ + + + !6 min !63!138/78 (98) ! ! ! +--------+--+ + + + * Stress results: The rate-pressure product for the peak heart rate and blood pressure was 9246mm Hg/min. Stress ECG: STRESS TEST ENDED IN 6 MINUTES & 5 SECONDS. PT EXPERIENCED MILD CHEST TIGHTNESS WITH LEXISCAN INJECTION NORMAL HEART RATE AND BLOOD PRESSURE RESPONSE TO LEXISCAN INJECTION NO ECTOPY 2 TO 3 OUT OF 10 CHEST TIGHTNESS 1 MINUTES AFTER LEXISCAN INJECTION. CHESST TIGHTNESS SUBSIDED 3 MINUTES AFTER LEXISCAN INJECTION. NO SIGNIFICANT ST SEGMENT CHANGES. Myocardial perfusion: Imaging information: gated. No myocardial perfusion defects noted. Ventricular Function (Wall Motion): The calculated left ventricular ejection fraction after stress: 42%. Diffuse left ventricular regional motion abnormalities. Study data: Jose Ridley MD supervised and was readily available during the procedure. This study was interpreted by [facility]. Study status: Routine. Consent: The risks, benefits, and alternatives to the procedure were explained to the patient and informed consent was obtained. Procedure: Initial setup. A baseline ECG was recorded. Surface ECG leads and manual cuff blood pressure measurements were monitored. Heart sounds: Normal. Lung sounds: Normal. Regadenoson stress test. Stress testing was performed, with regadenoson by intravenous bolus, for a total dose of 0.4mgover 10.00sec, followed by a 5ml saline flush. The infusion was terminated due to per protocol. Study completion: All catheters inserted during the procedure were removed. The patient tolerated the procedure well and was discharged from the lab. Discharge: The patient left the laboratory in stable condition. Birthdate: Patient birthdate: 1950. Sex: Gender: male. Study date: Study date: 04/06/2018. Study time: 12:30 PM. Electronically signed by Jose Ridley MD 04/06/2018 15:54
[2018-04-06 07:51] LABS: Anion Gap 8.8 mmol/L (3-11); BUN 19 mg/dL (7-18); CO2 26.2 mmol/L (21.0-32.0); CREATININE 0.93 mg/dL (0.70-1.30); Calcium 8.6 mg/dL (8.5-10.1); Chloride 105 mmol/L (98-107); Glucose 117 mg/dL (70-100); Potassium 4.1 mmol/L (3.5-5.1); Sodium 140 mmol/L (136-145)
[2018-04-06] MEDS: Regadenoson 0.4 MG/5 ML SYR IVP (09:55)
[2018-04-06] MEDS: Aspirin E.C. 81 MG TABEC PO (10:25)
[2018-04-06] MEDS: Gabapentin 400 MG CAP 1200 MG PO ×2 (10:25→20:21)
[2018-04-06] MEDS: Potassium Chloride 20 MEQ TABCR PO (10:25)
[2018-04-06] MEDS: Losartan 25 MG TAB PO (10:25)
[2018-04-06] MEDS: Omega-3 Fatty Acids 1000 MG CAP PO ×2 (10:25→20:21)
--- NOTE | 2018-04-06 11:20 | DM INPTCON_ITS ---
DESCRIPTION/ASSESSMENT: Appreciate diabetes consult for Mr. Frias who is here with heart considerations. A1c here 6.6 BMI 45 Blood sugars here 97-116 without diabetes medication. Attempted to visit. He was discharged prior to seeing him. INTERVENTION/PLAN: Outpatient diabetes support as desired/indicated.
[2018-04-06] MEDS: Gabapentin 800 MG TAB PO (13:46)
[2018-04-06] MEDS: Metoprolol 12.5 MG TAB PO (13:46)
--- NOTE | 2018-04-06 15:51 | PDOC.CMPRO ---
Care Management Progress Note S/O: Ace was sitting up in his chair, having lunch with his , Merari when CM met with him. Later in the day he was ambulating through the hallways. Ace reported feeling anxious and nervous while awaiting results from his stress test today; he was able to appropriately process these emotions and discuss different outcomes and ask questions. CM shared that Ace may return home with Ziopatch and outpatient follow up per MD if MPI was unremarkable. CM reviewed contact information for CM in the event Ace requires support. A: 67 year old male admitted to [facility] 04/06/18 for Atypical Chest Pain, PSVT, NIDDM P: Plan undetermined at this time; awaiting results of MPI per MD. If returning home, Ace will have Ziopatch and OP follow up with Cardiology as well as his PCP and paraeducator and will transport via private vehicle with his , Merari.
--- NOTE | 2018-04-06 15:55 | CMPROGNOTE_ITS ---
Care Management Progress Note S/O: Ace was sitting up in his chair, having lunch with his , Merari when CM met with him. Later in the day he was ambulating through the hallways. Ace reported feeling anxious and nervous while awaiting results from his stress test today; he was able to appropriately process these emotions and discuss different outcomes and ask questions. CM shared that Ace may return home with Ziopatch and outpatient follow up per MD if MPI was unremarkable. CM reviewed contact information for CM in the event Ace requires support. A: 67 year old male admitted to [facility] 04/06/18 for Atypical Chest Pain, PSVT, NIDDM P: Plan undetermined at this time; awaiting results of MPI per MD. If returning home, Ace will have Ziopatch and OP follow up with Cardiology as well as his PCP and range aid and will transport via private vehicle with his , Merari.
--- NOTE | 2018-04-06 16:59 | W.PM.PROGNOT ---
Date of service: 04/06/18 Time of Service: 17:00 Assessment and Plan (1) PSVT (paroxysmal supraventricular tachycardia): Current visit: Yes Status: Acute One episode of supraventricular tachycardia that self resolved as he was getting an IV in the emergency department, likely secondary to vagal response. He was started on metoprolol and had bradycardia down to the 40s and 50s. His metoprolol has been decreased down to 6.25mg BID. He has been monitored on telemetry, he has had no further SVT. He may have some degree of sinus node dysfunction underlying as he has been very sensitive to low dose metoprolol. Plan to continue to monitor on telemetry overnight. If he continues to be bradycardic, plan to discuss with cardiology tomorrow. He will need a Ziopatch upon discharge for further monitoring. (2) Type 2 diabetes mellitus without complication, without long-term current use of insulin: Current visit: No Status: Chronic His fingersticks have been monitored. He has not required any meal time insulin. He has requested that we stop checking blood sugars. Given that his blood sugars have been in an acceptable range and he was not required insulin on the sliding scale, will discontinue fingersticks. Subjective Interval history since last seen: Ace Frias is a 67 yo who presented to the [facility] ED on 04/04/18 with One episode of supraventricular tachycardia after 4-5 hours of strenuous physical exertion at home. The SVT self resolved as he was getting an IV in the emergency department, likely secondary to vagal response. He was started on low dose metoprolol and subsequently experienced bradycardia down to the 40-50s. His beta marya dose was decreased. Today he received 12.5 mg and continued to be bradycardic. His dose has been further decreased to 6.25 mg. He had mildly elevated troponins on admission at 0.20-0.18-0.10, likely demand ischemia. He went on to have a stress test which was reported by cardiology as being normal. He was considered for discharge today after the stress test, however he continues to have heart rates in the 50s. He has had no further SVT. There is concern that he may have some degree of sinus node dysfunction underlying as he has been very sensitive to the metoprolol. He denies feeling palpitations, chest pain/pressure, he denies SOB, cough, wheezing, no nausea, vomiting, diarrhea, he notes mild edema to his ankles bilaterally. He is eager for discharge. He and his have a trip to [facility] planned for . Exam Const General: cooperative, comfortable and no acute distress Nutritional Appearance: overweight Orientation: alert, awake and oriented x3 HENMT Head: normocephalic and atraumatic Mouth: moist mucous membranes Eyes Conjunctivae: conjunctivae normal Sclera: sclerae normal Neck Neck: supple Resp Effort & Inspection: normal respiratory effort Auscultation: clear to auscultation bilaterally, no rales, no rhonchi and no wheezes Cardio Rate: regular rate and bradycardic Heart Sounds: S1 normal, S2 normal, no click, no gallops, no murmurs and no rubs Pulses: radial pulses present and posterior tibial pulses present GI Palpation: soft, no masses and nontender Auscultation: normal bowel sounds Extrem General: full ROM and edema (+1 nonpitting edema to bilateral ankles.) Objective Objective Clinical Data: Abnormal lab results 04/06/18 04/06/18 Range/Units 06:35 06:35 Absolute Monocytes 0.89 H (0.11-0.7) k/cumm BUN 19 H (7-18) mg/dL Glucose 117 H (70-100) mg/dL Vital Signs Temperature 36.9 C 04/06/18 16:10 Temperature Source Tympanic 04/06/18 16:10 Pulse 53 L 04/06/18 16:10 Pulse Rhythm Regular 04/06/18 08:30 Pulse 72 04/04/18 19:10 Respiratory Rate 18 04/06/18 16:10 Respiratory Effort Non-Labored 04/06/18 08:30 Respiratory Depth Normal 04/06/18 08:30 Respiratory Pattern Normal 04/06/18 08:30 Blood Pressure 138/80 04/06/18 16:10 Blood Pressure Mean 88 04/04/18 19:01 Blood Pressure Position Supine 04/04/18 14:26 Pulse Oximetry 94 L 04/06/18 16:10 Oxygen Delivery Method Room Air 04/06/18 16:10 Oxygen Flow Rate 0 04/06/18 16:10 Pain Level 0 04/06/18 11:48 Intake & Output 04/05/18 04/06/18 04/06/18 23:59 11:59 23:59 Intake Total 1316.667 / 0838.232 2073.667 / 1706.667 Output Total 460 / 460 1150 / 1150 Balance 856.667 / 856.667 556.667 / 556.667 Weight 149.4 kg Intake: IV 816.667 / 816.667 966.667 / 966.667 Oral 500 / 500 740 / 740 Output: Urine 460 / 460 1150 / 1150 Other: Urine Color Light R[place] Yellow Urine Appearance Clear Clear Urine Odor Normal Comment voided x 2 for 700cc amount. Voiding Methods Urinal Urinal Toilet Laboratory Results WBC 7.25 k/cumm (4.4-10.8) 04/06/18 06:35 RBC 4.82 m/cumm (4.50-6.00) 04/06/18 06:35 Hgb 14.8 g/dL (13.5-17.5) 04/06/18 06:35 Hct 45.2 % (40.0-50.0) 04/06/18 06:35 MCV 93.8 fL (80-95) 04/06/18 06:35 MCH 30.7 pg (27.0-33.0) 04/06/18 06:35 MCHC 32.7 g/dL (32.0-36.0) 04/06/18 06:35 RDW 13.7 % (11.8-14.1) 04/06/18 06:35 Plt Count 183 x1000/uL (130-400) 04/06/18 06:35 MPV 9.8 fL (8.0-11.0) 04/06/18 06:35 Abs Immat Gran (auto) Cancelled 04/04/18 16:00 Immature Gran % 0.1 04/06/18 06:35 Neutrophils % 57.0 04/06/18 06:35 Lymphocytes % 25.2 04/06/18 06:35 Monocytes % 12.3 04/06/18 06:35 Eosinophils % 4.8 04/06/18 06:35 Basophils % 0.6 04/06/18 06:35 Absolute Neutrophils 4.13 k/cumm (1.2-6.7) 04/06/18 06:35 Band Neutrophils Cancelled 04/04/18 16:00 Absolute Lymphocytes 1.83 k/cumm (1.2-3.4) 04/06/18 06:35 Absolute Monocytes 0.89 k/cumm (0.11-0.7) H 04/06/18 06:35 Absolute Eosinophils 0.35 k/cumm (0.0-0.7) 04/06/18 06:35 Absolute Basophils 0.04 k/cumm (0.0-0.2) 04/06/18 06:35 Metamyelocytes Cancelled 04/04/18 16:00 Myelocytes Cancelled 04/04/18 16:00 Promyelocytes Cancelled 04/04/18 16:00 Nucleated RBCs Cancelled 04/04/18 16:00 Differential Comment Cancelled 04/04/18 16:00 Atypical Lymphocytes Cancelled 04/04/18 16:00 Other Cell Type Cancelled 04/04/18 16:00 RBC Morphology Cancelled 04/04/18 16:00 Polychromasia Cancelled 04/04/18 16:00 Hypochromasia Cancelled 04/04/18 16:00 Poikilocytosis Cancelled 04/04/18 16:00 Basophilic Stippling Cancelled 04/04/18 16:00 Anisocytosis Cancelled 04/04/18 16:00 Microcytosis Cancelled 04/04/18 16:00 Macrocytosis Cancelled 04/04/18 16:00 Spherocytes Cancelled 04/04/18 16:00 Target Cells Cancelled 04/04/18 16:00 Tear Drop Cells Cancelled 04/04/18 16:00 Ovalocytes Cancelled 04/04/18 16:00 Stomatocytes Cancelled 04/04/18 16:00 [place] Bodies Cancelled 04/04/18 16:00 [place] Cells Cancelled 04/04/18 16:00 Acanthocytes (Spur) Cancelled 04/04/18 16:00 Schistocytes Cancelled 04/04/18 16:00 PT Cancelled 04/04/18 20:25 INR Cancelled 04/04/18 20:25 D-Dimer 791 ng/mlFEU (<500) H 04/04/18 14:15 Sodium 140 mmol/L (136-145) 04/06/18 06:35 Potassium 4.1 mmol/L (3.5-5.1) 04/06/18 06:35 Chloride 105 mmol/L (98-107) 04/06/18 06:35 Carbon Dioxide 26.2 mmol/L (21.0-32.0) 04/06/18 06:35 Anion Gap 8.8 mmol/L (3-11) 04/06/18 06:35 BUN 19 mg/dL (7-18) H 04/06/18 06:35 Creatinine 0.93 mg/dL (0.70-1.30) 04/06/18 06:35 Estimated GFR/1.73 m2 >= 60.00 (mL/min/1.73m2) 04/06/18 06:35 Glucose 117 mg/dL (70-100) H 04/06/18 06:35 Hemoglobin A1c 6.6 % (4.5-6.2) H 04/05/18 07:00 Calcium 8.6 mg/dL (8.5-10.1) 04/06/18 06:35 Magnesium 1.7 mg/dL (1.8-2.4) L 04/05/18 07:00 Total Bilirubin 0.9 mg/dL (0.2-1.0) 04/05/18 07:00 Conjugated Bilirubin 0.20 mg/dL (0.00-0.20) 04/04/18 14:15 AST 31 U/L (15-37) 04/05/18 07:00 ALT 43 U/L (12-78) 04/05/18 07:00 Alkaline Phosphatase 66 U/L (46-116) 04/05/18 07:00 Troponin I 0.10 ng/mL (0.00-0.06) H 04/05/18 07:00 Total Protein 6.1 g/dL (6.4-8.2) L 04/05/18 07:00 Albumin 3.1 g/dL (3.4-5.0) L 04/05/18 07:00 TSH 1.62 uIU/mL (0.358-3.74) 04/04/18 14:15 Urine Color Yellow (Yellow) 04/04/18 23:15 Urine Clarity Clear 04/04/18 23:15 Urine pH 5.5 (5-8) 04/04/18 23:15 Ur Specific [place] 1.015 (1.005-1.025) 04/04/18 23:15 Urine Protein Negative mg/dL (Negative) 04/04/18 23:15 Urine Ketones Negative mg/dL (Negative) 04/04/18 23:15 Urine Blood Negative (Negative) 04/04/18 23:15 Urine Nitrite Negative (Negative) 04/04/18 23:15 Urine Bilirubin Negative (Negative) 04/04/18 23:15 Urine Urobilinogen 0.2 EU/dL (Up TO 0.2) 04/04/18 23:15 Ur Leukocyte Esterase Negative (Negative) 04/04/18 23:15 Urine Glucose Negative mg/dL (Negative) 04/04/18 23:15
[2018-04-06] MEDS: Atorvastatin 40 MG TAB 80 MG PO (20:21)
[2018-04-07] VITALS (8 sets, daily range): BP systolic 130–138; BP diastolic 84–89; PULSE 39–54; RESP 16–18; TEMP 35.3–36.4; O2SAT 95–97
[2018-04-07] MEDS: Gabapentin 400 MG CAP 1200 MG PO (08:25)
[2018-04-07] MEDS: Potassium Chloride 20 MEQ TABCR PO (08:25)
[2018-04-07] MEDS: Losartan 25 MG TAB PO (08:25)
[2018-04-07] MEDS: Aspirin E.C. 81 MG TABEC PO (08:25)
[2018-04-07] MEDS: Magnesium Oxide 400 MG TAB PO (09:46)
[2018-04-07] MEDS: Gabapentin 800 MG TAB PO (11:49)
--- NOTE | 2018-04-07 13:45 | PDOC.CMDIS ---
- If Service Date Differs Date of service: 04/07/18 Time of Service: 13:45 LACE Index Scoring Tool - Questions: Length of Stay (in days): 4 - 6 Acuity (Admit via E.D.?): Yes Comorbidities: Diabetes w/o Complication E.D. Visits: 1 - Answers: Total Score: 9 Risk of Readmission: Low Risk Care Management Discharge Reason for Hospitalization: Atypical chest pain, PSVT Discharge Plan: Ace will return home today with no services. He will have a Zio patch placed prior to DC. Ace will F/U with PCP and plan of care as prescribed. his will transport. Patient/Family Education Needs: Review DC instructions, any limitations, and discuss Ask Me Three
--- NOTE | 2018-04-07 14:25 | W.PM.DS.N ---
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 Course Hospital Course: Ace Frias is a 67 year old with a past medical history significant for obesity, HTN, hyperlipidemia, CHRISS with CPAP and self-reported pre-diabetes (Hgb A1c 6.6) who presented to the [facility] ED on 04/04/18 with One episode of supraventricular tachycardia after 4-5 hours of strenuous physical exertion at home. The SVT self resolved as he was getting an IV in the emergency department, likely secondary to vagal response. Of note, he has had one episodee of nonsustained SVT in the past about one year ago. He was started on low dose metoprolol here in an attempt to prevent recurrence of SVT and subsequently experienced bradycardia down to the 40-50s. He went as low as 38 while asleep. His beta marya dose was decreased and then discontinued. He was never symptomatic while here at the hospital. He was monitored on telemetry which revealed a first degree heart block, normal sinus rhythm to sinus bradycardia. He had mildly elevated troponins on admission at 0.20-0.18-0.10, likely demand ischemia. There was concern for underlying cardiac disease in the setting of risk factors. He went on to have a stress test which was reported by cardiology as being normal. There were no myocardial perfusion defects noted. The LVEF after stress was 42%, he was noted to have diffuse left ventricular regional motion abnormalities. CTA was performed in the ED and this was negative though did show some atherosclerotic disease of the coronary arteries. A cardiology consult was placed, his case was discussed with Dr. Cervantes, Cardiology, who recommended discharge without any yony blocking agents scheduled, however, he recommended PRN Metoprolol 6.25 mg to be taken if he experiences sustained SVT. He was planning to fly to [place] tomorrow, he has been advised that he should postpone his trip for now. He is advised that these arrhythmias tend to occur in clusters and that things like alcohol, sleep deprivation, time change may affect this. His losartan dose was decreased from 100 mg at home to 25 mg here and his blood pressures have been in an acceptable range. He will be discharged home with a lower dose of Losartan and continue with hydrochlorathiazide dosing as usual. He has been eager for discharge. He has denied symptoms. He will be discharged home today with follow up with his PCP in place. He will need to follow up with cardiology as scheduled. He will also follow up with pulmonology for evaluation of his CPAP settings and possible repeat sleep study. Home Meds and New Rx's Prescriptions: New metoprolol tartrate 25 mg Tablet 6.25 mg PO PRN PRNQty: 5 RF: 0 hydrochlorothiazide 12.5 mg capsule 12.5 mg PO DAILY Qty: 30 RF: 0 losartan 25 mg tablet 25 mg PO DAILY Qty: 30 RF: 0 Continue bobvhkfn-cqfdu-woi 2-C-D3-paolo [Stoqochz-Cdoqep-TBE with vit D] 1 EACH tablet 2 ea PO DAILY RF: 0 ibuprofen [Advil] 200 MG tablet 800 mg PO TID PRNRF: 0 omega-3 fatty acids-fish oil [Fish Oil] 1 EACH capsule 1 ea PO TID Qty: 90 RF: 3 aspirin 81 MG tablet,delayed release (DR/EC) 81 mg PO DAILY RF: 0 sildenafil (antihypertensive) 20 MG tablet 20 mg PO DAILY PRNQty: 10 RF: 0 blood-glucose meter 1 EACH misc 1 ea Miscellaneous DAILY Qty: 1 RF: 0 blood sugar diagnostic [Blood Glucose Test] 1 EACH strip 1 ea Miscellaneous DAILY Qty: 100 RF: 3 lancets 1 EACH misc 1 ea Miscellaneous DAILY Qty: 100 RF: 3 gabapentin 800 MG tablet 800 mg PO as directed Qty: 360 RF: 3 atorvastatin 80 MG tablet 80 mg PO DAILY Qty: 90 RF: 3 cholecalciferol (vitamin D3) 5,000 UNIT capsule 2 tab PO DAILY RF: 0 Discontinued losartan-hydrochlorothiazide 1 EACH tablet 1 tab-cap PO DAILY Qty: 90 RF: 3 Discharge Instructions Instructions: Supraventricular Tachycardia (DC) Additional Instructions: Follow up with your PCP as scheduled. Follow up with Cardiology at [facility] as scheduled. Follow up with Pulmonology for CPAP check and possible repeat Sleep study. Stop taking the Losartan/HCTZ combo (your dose has been reduced and will be 2 separate pills). You will have a new Rx for Losartan at a lower dose. Your HCTZ will remain the same dose as before, it will be in a separate pill. You should not travel long distances as recommended by Cardiology until you are cleared by your PCP or medical assistant dermatology. You will have a new Rx for Metoprolol to be taken as needed if you sustain a fast heart rate again. Stand Alone Forms: Nursing Discharge Form Referrals: CARDIOLOGY,[facility] [OTHER] - 06/16/18 8:30 am Ashanti Delgadillo NP [Primary Care Provider] - 04/16/18 3:30 pm Activity:: Activity as Tolerated Equipment/Supplies:: No Equipment Needed Discharge Orders Discharge Orders: Discharge Order (Routine); Ordered 04/07/18 Ordered By: Angeles Griffin Other Ambulatory Orders: Basic Metabolic Panel (Routine) Location: Determined by Patient Ordered By: Angeles Griffin Magnesium (Routine) Timeframe: 1 Week Location: Determined by Patient Ordered By: Angeles Griffin DS: Data Vitals/I&O Vitals and I&O: Vital Signs Temperature 36.4 C L 04/07/18 11:30 Temperature Source Tympanic 04/07/18 11:30 Pulse 51 L 04/07/18 11:30 Pulse Rhythm Regular 04/07/18 03:45 Pulse 72 04/04/18 19:10 Respiratory Rate 18 04/07/18 11:30 Respiratory Effort 04/07/18 03:45 Respiratory Depth Normal 04/07/18 03:45 Respiratory Pattern Normal 04/07/18 03:45 Blood Pressure 130/84 04/07/18 11:30 Blood Pressure Mean 88 04/04/18 19:01 Blood Pressure Position Supine 04/04/18 14:26 Pulse Oximetry 96 04/07/18 11:30 Oxygen Delivery Method Room Air 04/07/18 11:30 Oxygen Flow Rate 0 04/07/18 11:30 Pain Level 0 04/07/18 11:30 Comment 04/07/18 07:30 Intake & Output 04/06/18 04/07/18 04/07/18 23:59 11:59 23:59 Intake Total 240 / 240 500 / 500 Balance 240 / 240 500 / 500 Weight 148 kg Intake: Oral 240 / 240 500 / 500 Other: Comment VOID X 1 IN TOILET Voiding Methods Toilet Toilet Completed studies during hospitalization [Text1]: 04/06/18 MPI Impressions: - Normal perfusion by [id number] Sestamibi Imaging. - Abnormal contraction consistent with cardiomyopathy. Summary: 1. Myocardial perfusion imaging: No myocardial perfusion defects noted. 2. The calculated left ventricular ejection fraction after stress: 42%. Diffuse left ventricular regional motion abnormalities 04/02/18 ABDOMEN ULTRASOUND: Routine examination was performed. The aorta and IVC are unremarkable. There is diffuse increased echogenicity of the liver consistent with hepatic steatosis. No hepatic mass is seen. The liver is enlarged measuring 20 cm. The gallbladder is negative. There is no biliary ductal dilatation. The common duct is within normal limits at .4 cm. The pancreas and spleen are unremarkable. The kidneys are unremarkable except for a 0.8 cm. simple cyst arising from the mid pole. This was present on the CT scan of the abdomen and pelvis from 08/04/17. The right lateral abdominal wall was evaluated sonographically. No cystic or solid masses are seen. IMPRESSION: Hepatomegaly. Hepatic steatosis. PA AND LATERAL CHEST: The heart is mildly enlarged. The lungs are clear and well expanded. No pleural effusion seen. CONCLUSION: Mild cardiomegaly, no other abnormality seen. Pending studies at discharge: COLONOSCOPY (10/19/03) Cardiovascular stress test using treadmill (10/18/08) DX ULTRASOUND-HEART (09/08/99) ESOPHAGOGASTRODUODENOSCOPY [EGD] W/CLOSED BIOPSY (10/03/98) Endoscopic polypectomy of large intestine (08/03/12) HEMORRHOID LIGATION (10/03/98) NEBULIZER THERAPY (09/08/99) OXYGEN ENRICHMENT NEC (09/08/99) Other repair of knee (05/12/07) TREADMILL STRESS TEST (10/24/99) Vital capacity determination (10/23/08) [Endoscopic] polypectomy of rectum (08/03/12) WBC 7.25 k/cumm (4.4-10.8) 04/06/18 06:35 RBC 4.82 m/cumm (4.50-6.00) 04/06/18 06:35 Hgb 14.8 g/dL (13.5-17.5) 04/06/18 06:35 Hct 45.2 % (40.0-50.0) 04/06/18 06:35 MCV 93.8 fL (80-95) 04/06/18 06:35 MCH 30.7 pg (27.0-33.0) 04/06/18 06:35 MCHC 32.7 g/dL (32.0-36.0) 04/06/18 06:35 RDW 13.7 % (11.8-14.1) 04/06/18 06:35 Plt Count 183 x1000/uL (130-400) 04/06/18 06:35 MPV 9.8 fL (8.0-11.0) 04/06/18 06:35 Abs Immat Gran (auto) Cancelled 04/04/18 16:00 Immature Gran % 0.1 04/06/18 06:35 Neutrophils % 57.0 04/06/18 06:35 Lymphocytes % 25.2 04/06/18 06:35 Monocytes % 12.3 04/06/18 06:35 Eosinophils % 4.8 04/06/18 06:35 Basophils % 0.6 04/06/18 06:35 Absolute Neutrophils 4.13 k/cumm (1.2-6.7) 04/06/18 06:35 Band Neutrophils Cancelled 04/04/18 16:00 Absolute Lymphocytes 1.83 k/cumm (1.2-3.4) 04/06/18 06:35 Absolute Monocytes 0.89 k/cumm (0.11-0.7) H 04/06/18 06:35 Absolute Eosinophils 0.35 k/cumm (0.0-0.7) 04/06/18 06:35 Absolute Basophils 0.04 k/cumm (0.0-0.2) 04/06/18 06:35 Metamyelocytes Cancelled 04/04/18 16:00 Myelocytes Cancelled 04/04/18 16:00 Promyelocytes Cancelled 04/04/18 16:00 Nucleated RBCs Cancelled 04/04/18 16:00 Differential Comment Cancelled 04/04/18 16:00 Atypical Lymphocytes Cancelled 04/04/18 16:00 Other Cell Type Cancelled 04/04/18 16:00 RBC Morphology Cancelled 04/04/18 16:00 Polychromasia Cancelled 04/04/18 16:00 Hypochromasia Cancelled 04/04/18 16:00 Poikilocytosis Cancelled 04/04/18 16:00 Basophilic Stippling Cancelled 04/04/18 16:00 Anisocytosis Cancelled 04/04/18 16:00 Microcytosis Cancelled 04/04/18 16:00 Macrocytosis Cancelled 04/04/18 16:00 Spherocytes Cancelled 04/04/18 16:00 Target Cells Cancelled 04/04/18 16:00 Tear Drop Cells Cancelled 04/04/18 16:00 Ovalocytes Cancelled 04/04/18 16:00 Stomatocytes Cancelled 04/04/18 16:00 [place] Bodies Cancelled 04/04/18 16:00 [place] Cells Cancelled 04/04/18 16:00 Acanthocytes (Spur) Cancelled 04/04/18 16:00 Schistocytes Cancelled 04/04/18 16:00 PT Cancelled 04/04/18 20:25 INR Cancelled 04/04/18 20:25 D-Dimer 791 ng/mlFEU (<500) H 04/04/18 14:15 Sodium 140 mmol/L (136-145) 04/06/18 06:35 Potassium 4.1 mmol/L (3.5-5.1) 04/06/18 06:35 Chloride 105 mmol/L (98-107) 04/06/18 06:35 Carbon Dioxide 26.2 mmol/L (21.0-32.0) 04/06/18 06:35 Anion Gap 8.8 mmol/L (3-11) 04/06/18 06:35 BUN 19 mg/dL (7-18) H 04/06/18 06:35 Creatinine 0.93 mg/dL (0.70-1.30) 04/06/18 06:35 Estimated GFR/1.73 m2 >= 60.00 (mL/min/1.73m2) 04/06/18 06:35 Glucose 117 mg/dL (70-100) H 04/06/18 06:35 Hemoglobin A1c 6.6 % (4.5-6.2) H 04/05/18 07:00 Calcium 8.6 mg/dL (8.5-10.1) 04/06/18 06:35 Magnesium 1.7 mg/dL (1.8-2.4) L 04/05/18 07:00 Total Bilirubin 0.9 mg/dL (0.2-1.0) 04/05/18 07:00 Conjugated Bilirubin 0.20 mg/dL (0.00-0.20) 04/04/18 14:15 AST 31 U/L (15-37) 04/05/18 07:00 ALT 43 U/L (12-78) 04/05/18 07:00 Alkaline Phosphatase 66 U/L (46-116) 04/05/18 07:00 Troponin I 0.10 ng/mL (0.00-0.06) H 04/05/18 07:00 Total Protein 6.1 g/dL (6.4-8.2) L 04/05/18 07:00 Albumin 3.1 g/dL (3.4-5.0) L 04/05/18 07:00 TSH 1.62 uIU/mL (0.358-3.74) 04/04/18 14:15 Urine Color Yellow (Yellow) 04/04/18 23:15 Urine Clarity Clear 04/04/18 23:15 Urine pH 5.5 (5-8) 04/04/18 23:15 Ur Specific [place] 1.015 (1.005-1.025) 04/04/18 23:15 Urine Protein Negative mg/dL (Negative) 04/04/18 23:15 Urine Ketones Negative mg/dL (Negative) 04/04/18 23:15 Urine Blood Negative (Negative) 04/04/18 23:15 Urine Nitrite Negative (Negative) 04/04/18 23:15 Urine Bilirubin Negative (Negative) 04/04/18 23:15 Urine Urobilinogen 0.2 EU/dL (Up TO 0.2) 04/04/18 23:15 Ur Leukocyte Esterase Negative (Negative) 04/04/18 23:15 Urine Glucose Negative mg/dL (Negative) 04/04/18 23:15
--- NOTE | 2018-04-07 14:35 | DSE_ITS ---
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: Status: Chronic (10) Hyperlipidemia, unspecified: Status: Chronic (11) Essential hypertension: Status: Chronic (12) Diverticulosis of large intestine without diverticulitis: Status: Chronic (13) Carpal tunnel syndrome, bilateral: Status: Chronic Discharge Plan Disposition Patient Disposition: HOME Condition: Serious Discharge Details Reason For Visit: ATYPICAL CHEST PAIN,PSVT,NIDDM Admit Date/Time: 04/04/18 19:07 Admit Provider: Abel Escobedo Attending Provider: Abel Escobedo Primary Care Provider: Ashanti Delgadillo [facility] Hospital Course: Ace Frias is a 67 year old with a past medical history significant for obesity, HTN, hyperlipidemia, CHRISS with CPAP and self-reported pre-diabetes (Hgb A1c 6.6) who presented to the [facility] ED on 04/04/18 with One episode of supraventricular tachycardia after 4-5 hours of strenuous physical exertion at home. The SVT self resolved as he was getting an IV in the emergency department , likely secondary to vagal response. Of note, he has had one episodee of nonsustained SVT in the past about one year ago. He was started on low dose metoprolol here in an attempt to prevent recurrence of SVT and subsequently experienced bradycardia down to the 40-50s. He went as low as 38 while asleep. His beta marya dose was decreased and then discontinued. He was never symptomatic while here at the hospital. He was monitored on telemetry which revealed a first degree heart block, normal sinus rhythm to sinus bradycardia. He had mildly elevated troponins on admission at 0.20-0.18-0.10, likely demand ischemia. There was concern for underlying cardiac disease in the setting of risk factors. He went on to have a stress test which was reported by cardiology as being normal. There were no myocardial perfusion defects noted. The LVEF after stress was 42%, he was noted to have diffuse left ventricular regional motion abnormalities. CTA was performed in the ED and this was negative though did show some atherosclerotic disease of the coronary arteries. A cardiology consult was placed, his case was discussed with Dr. Cervantes, Cardiology, who recommended discharge without any yony blocking agents scheduled, however, he recommended PRN Metoprolol 6.25 mg to be taken if he experiences sustained SVT. He was planning to fly to [place] tomorrow, he has been advised that he should postpone his trip for now. He is advised that these arrhythmias tend to occur in clusters and that things like alcohol, sleep deprivation, time change may affect this. His losartan dose was decreased from 100 mg at home to 25 mg here and his blood pressures have been in an acceptable range. He will be discharged home with a lower dose of Losartan and continue with hydrochlorathiazide dosing as usual. He has been eager for discharge. He has denied symptoms. He will be discharged home today with follow up with his PCP in place. He will need to follow up with cardiology as scheduled. He will also follow up with pulmonology for evaluation of his CPAP settings and possible repeat sleep study. Home Meds and New Rx's Prescriptions: New metoprolol tartrate 25 mg Tablet 6.25 mg PO PRN PRNQty: 5 RF: 0 hydrochlorothiazide 12.5 mg capsule 12.5 mg PO DAILY Qty: 30 RF: 0 losartan 25 mg tablet 25 mg PO DAILY Qty: 30 RF: 0 Continue wjljojqp-xjagj-bas 2-C-D3-paolo [Nzrtmvjg-Wojutm-ACW with vit D] 1 EACH tablet 2 ea PO DAILY RF: 0 ibuprofen [Advil] 200 MG tablet 800 mg PO TID PRNRF: 0 omega-3 fatty acids-fish oil [Fish Oil] 1 EACH capsule 1 ea PO TID Qty: 90 RF: 3 aspirin 81 MG tablet,delayed release (DR/EC) 81 mg PO DAILY RF: 0 sildenafil (antihypertensive) 20 MG tablet 20 mg PO DAILY PRNQty: 10 RF: 0 blood-glucose meter 1 EACH misc 1 ea Miscellaneous DAILY Qty: 1 RF: 0 blood sugar diagnostic [Blood Glucose Test] 1 EACH strip 1 ea Miscellaneous DAILY Qty: 100 RF: 3 lancets 1 EACH misc 1 ea Miscellaneous DAILY Qty: 100 RF: 3 gabapentin 800 MG tablet 800 mg PO as directed Qty: 360 RF: 3 atorvastatin 80 MG tablet 80 mg PO DAILY Qty: 90 RF: 3 cholecalciferol (vitamin D3) 5,000 UNIT capsule 2 tab PO DAILY RF: 0 Discontinued losartan-hydrochlorothiazide 1 EACH tablet 1 tab-cap PO DAILY Qty: 90 RF: 3 Discharge Instructions Instructions: Supraventricular Tachycardia (DC) Additional Instructions: Follow up with your PCP as scheduled. Follow up with Cardiology at [facility] as scheduled. Follow up with Pulmonology for CPAP check and possible repeat Sleep study. Stop taking the Losartan/HCTZ combo (your dose has been reduced and will be 2 separate pills). You will have a new Rx for Losartan at a lower dose. Your HCTZ will remain the same dose as before, it will be in a separate pill. You should not travel long distances as recommended by Cardiology until you are cleared by your PCP or census taker. You will have a new Rx for Metoprolol to be taken as needed if you sustain a fast heart rate again. Stand Alone Forms: Nursing Discharge Form Referrals: CARDIOLOGY,[facility] [OTHER] - 06/16/18 8:30 am Ashanti Delgadillo NP [Primary Care Provider] - 04/16/18 3:30 pm Activity:: Activity as Tolerated Equipment/Supplies:: No Equipment Needed Discharge Orders Discharge Orders: Discharge Order (Routine); Ordered 04/07/18 Ordered By: Angeles Griffin Other Ambulatory Orders: Basic Metabolic Panel (Routine) Location: Determined by Patient Ordered By: Angeles Griffin Magnesium (Routine) Timeframe: 1 Week Location: Determined by Patient Ordered By: Angeles Griffin DS: Data Vitals/I&O Vitals and I&O: Vital Signs Temperature 36.4 C L 04/07/18 11:30 Temperature Source Tympanic 04/07/18 11:30 Pulse 51 L 04/07/18 11:30 Pulse Rhythm Regular 04/07/18 03:45 Pulse 72 04/04/18 19:10 Respiratory Rate 18 04/07/18 11:30 Respiratory Effort 04/07/18 03:45 Respiratory Depth Normal 04/07/18 03:45 Respiratory Pattern Normal 04/07/18 03:45 Blood Pressure 130/84 04/07/18 11:30 Blood Pressure Mean 88 04/04/18 19:01 Blood Pressure Position Supine 04/04/18 14:26 Pulse Oximetry 96 04/07/18 11:30 Oxygen Delivery Method Room Air 04/07/18 11:30 Oxygen Flow Rate 0 04/07/18 11:30 Pain Level 0 04/07/18 11:30 Comment 04/07/18 07:30 Intake & Output 04/06/18 04/07/18 04/07/18 23:59 11:59 23:59 Intake Total 240 / 240 500 / 500 Balance 240 / 240 500 / 500 Weight 148 kg Intake: Oral 240 / 240 500 / 500 Other: Comment VOID X 1 IN TOILET Voiding Methods Toilet Toilet Completed studies during hospitalization [Text1]: 04/06/18 MPI Impressions: - Normal perfusion by Tc99m Sestamibi Imaging. - Abnormal contraction consistent with cardiomyopathy. Summary: 1. Myocardial perfusion imaging: No myocardial perfusion defects noted. 2. The calculated left ventricular ejection fraction after stress: 42%. Diffuse left ventricular regional motion abnormalities 04/02/18 ABDOMEN ULTRASOUND: Routine examination was performed. The aorta and IVC are unremarkable. There is diffuse increased echogenicity of the liver consistent with hepatic steatosis. No hepatic mass is seen. The liver is enlarged measuring 20 cm. The gallbladder is negative. There is no biliary ductal dilatation. The common duct is within normal limits at .4 cm. The pancreas and spleen are unremarkable. The kidneys are unremarkable except for a 0.8 cm. simple cyst arising from the mid pole. This was present on the CT scan of the abdomen and pelvis from . The right lateral abdominal wall was evaluated sonographically. No cystic or solid masses are seen. IMPRESSION: Hepatomegaly. Hepatic steatosis. PA AND LATERAL CHEST: The heart is mildly enlarged. The lungs are clear and well expanded. No pleural effusion seen. CONCLUSION: Mild cardiomegaly, no other abnormality seen. Pending studies at discharge: COLONOSCOPY (10/19/03) Cardiovascular stress test using treadmill (10/18/08) DX ULTRASOUND-HEART (09/08/99) ESOPHAGOGASTRODUODENOSCOPY [EGD] W/CLOSED BIOPSY (10/03/98) Endoscopic polypectomy of large intestine (08/03/12) HEMORRHOID LIGATION (10/03/98) NEBULIZER THERAPY (09/08/99) OXYGEN ENRICHMENT NEC (09/08/99) Other repair of knee (05/12/07) TREADMILL STRESS TEST (10/24/99) Vital capacity determination (10/23/08) [Endoscopic] polypectomy of rectum (08/03/12) WBC 7.25 k/cumm (4.4-10.8) 04/06/18 06:35 RBC 4.82 m/cumm (4.50-6.00) 04/06/18 06:35 Hgb 14.8 g/dL (13.5-17.5) 04/06/18 06:35 Hct 45.2 % (40.0-50.0) 04/06/18 06:35 MCV 93.8 fL (80-95) 04/06/18 06:35 MCH 30.7 pg (27.0-33.0) 04/06/18 06:35 MCHC 32.7 g/dL (32.0-36.0) 04/06/18 06:35 RDW 13.7 % (11.8-14.1) 04/06/18 06:35 Plt Count 183 x1000/uL (130-400) 04/06/18 06:35 MPV 9.8 fL (8.0-11.0) 04/06/18 06:35 Abs Immat Gran (auto) Cancelled 04/04/18 16:00 Immature Gran % 0.1 04/06/18 06:35 Neutrophils % 57.0 04/06/18 06:35 Lymphocytes % 25.2 04/06/18 06:35 Monocytes % 12.3 04/06/18 06:35 Eosinophils % 4.8 04/06/18 06:35 Basophils % 0.6 04/06/18 06:35 Absolute Neutrophils 4.13 k/cumm (1.2-6.7) 04/06/18 06:35 Band Neutrophils Cancelled 04/04/18 16:00 Absolute Lymphocytes 1.83 k/cumm (1.2-3.4) 04/06/18 06:35 Absolute Monocytes 0.89 k/cumm (0.11-0.7) H 04/06/18 06:35 Absolute Eosinophils 0.35 k/cumm (0.0-0.7) 04/06/18 06:35 Absolute Basophils 0.04 k/cumm (0.0-0.2) 04/06/18 06:35 Metamyelocytes Cancelled 04/04/18 16:00 Myelocytes Cancelled 04/04/18 16:00 Promyelocytes Cancelled 04/04/18 16:00 Nucleated RBCs Cancelled 04/04/18 16:00 Differential Comment Cancelled 04/04/18 16:00 Atypical Lymphocytes Cancelled 04/04/18 16:00 Other Cell Type Cancelled 04/04/18 16:00 RBC Morphology Cancelled 04/04/18 16:00 Polychromasia Cancelled 04/04/18 16:00 Hypochromasia Cancelled 04/04/18 16:00 Poikilocytosis Cancelled 04/04/18 16:00 Basophilic Stippling Cancelled 04/04/18 16:00 Anisocytosis Cancelled 04/04/18 16:00 Microcytosis Cancelled 04/04/18 16:00 Macrocytosis Cancelled 04/04/18 16:00 Spherocytes Cancelled 04/04/18 16:00 Target Cells Cancelled 04/04/18 16:00 Tear Drop Cells Cancelled 04/04/18 16:00 Ovalocytes Cancelled 04/04/18 16:00 Stomatocytes Cancelled 04/04/18 16:00 [place] Bodies Cancelled 04/04/18 16:00 [place] Cells Cancelled 04/04/18 16:00 Acanthocytes (Spur) Cancelled 04/04/18 16:00 Schistocytes Cancelled 04/04/18 16:00 PT Cancelled 04/04/18 20:25 INR Cancelled 04/04/18 20:25 D-Dimer 791 ng/mlFEU (<500) H 04/04/18 14:15 Sodium 140 mmol/L (136-145) 04/06/18 06:35 Potassium 4.1 mmol/L (3.5-5.1) 04/06/18 06:35 Chloride 105 mmol/L (98-107) 04/06/18 06:35 Carbon Dioxide 26.2 mmol/L (21.0-32.0) 04/06/18 06:35 Anion Gap 8.8 mmol/L (3-11) 04/06/18 06:35 BUN 19 mg/dL (7-18) H 04/06/18 06:35 Creatinine 0.93 mg/dL (0.70-1.30) 04/06/18 06:35 Estimated GFR/1.73 m2 >= 60.00 (mL/min/1.73m2) 04/06/18 06:35 Glucose 117 mg/dL (70-100) H 04/06/18 06:35 Hemoglobin A1c 6.6 % (4.5-6.2) H 04/05/18 07:00 Calcium 8.6 mg/dL (8.5-10.1) 04/06/18 06:35 Magnesium 1.7 mg/dL (1.8-2.4) L 04/05/18 07:00 Total Bilirubin 0.9 mg/dL (0.2-1.0) 04/05/18 07:00 Conjugated Bilirubin 0.20 mg/dL (0.00-0.20) 04/04/18 14:15 AST 31 U/L (15-37) 04/05/18 07:00 ALT 43 U/L (12-78) 04/05/18 07:00 Alkaline Phosphatase 66 U/L (46-116) 04/05/18 07:00 Troponin I 0.10 ng/mL (0.00-0.06) H 04/05/18 07:00 Total Protein 6.1 g/dL (6.4-8.2) L 04/05/18 07:00 Albumin 3.1 g/dL (3.4-5.0) L 04/05/18 07:00 TSH 1.62 uIU/mL (0.358-3.74) 04/04/18 14:15 Urine Color Yellow (Yellow) 04/04/18 23:15 Urine Clarity Clear 04/04/18 23:15 Urine pH 5.5 (5-8) 04/04/18 23:15 Ur Specific [place] 1.015 (1.005-1.025) 04/04/18 23:15 Urine Protein Negative mg/dL (Negative) 04/04/18 23:15 Urine Ketones Negative mg/dL (Negative) 04/04/18 23:15 Urine Blood Negative (Negative) 04/04/18 23:15 Urine Nitrite Negative (Negative) 04/04/18 23:15 Urine Bilirubin Negative (Negative) 04/04/18 23:15 Urine Urobilinogen 0.2 EU/dL (Up TO 0.2) 04/04/18 23:15 Ur Leukocyte Esterase Negative (Negative) 04/04/18 23:15 Urine Glucose Negative mg/dL (Negative) 04/04/18 23:15
--- NOTE | 2018-04-07 14:53 | CHAPLAIN ---
Mr Rodriguez was sitting in his chair visiting with his when I visited. He explained that after my Thursday afternoon visit, the container maker from [facility] visited him, and he was worried why he had both a early childhood worker and a container maker visit. I assured him it was routine, that I try to meet all patients and that the priests come on Thursday and Thursday to visit any patients who are listed as being [employer].
--- NOTE | 2018-04-30 07:10 | ZIOP_ITS ---
ZIO Patch INTERPRETATION DATE OF DICTATION April 29, 2018 Analysis time 19 hours. INDICATION - Paroxysmal tachycardia. Predominant underlying rhythm is sinus rhythm. Average heart rate 61 beats per minute. Minimum heart rate 43 beats per minute. Maximum heart rate is 133 beats per minute. First degree AV block is present. 1 brief burst of SVT lasting 5 beats with a max heart rate of 133 beats per minute. Otherwise rare isolated atrial ectopy. Isolated rare ventricular ectopy. No nonsustained VT. No significant pauses or asha arrhythmias. No patient triggered events and no diary entries. Juan C Gorman M.D. EKATERINA/cristian T - 04/30/2018
== END 2018-04-07 18:01 | disposition home or self-care (01) | DRG 309 ==
LOC: ER 18:41 → MS 21:00
PROVIDERS: Internal Medicine; Admitting Provider Family Medicine; Emergency Provider Student in an Organized Health Care Education/Training Program; Visit Provider Family Medicine
DX: I47.1 Supraventricular tachycardia (principal); I42.9 Cardiomyopathy, unspecified; I24.8 Other forms of acute ischemic heart disease; R07.9 Chest pain, unspecified; I44.0 Atrioventricular block, first degree; E11.42 Type 2 diabetes mellitus with diabetic polyneuropathy; E66.9 Obesity, unspecified; G47.33 Obstructive sleep apnea (adult) (pediatric); E78.5 Hyperlipidemia, unspecified; I10 Essential (primary) hypertension; R00.1 Bradycardia, unspecified; T44.7X5A Adverse effect of beta-adrenoreceptor antagonists, initial encounter
CPT/HCPCS: 36415; 71275; 78452; 80048; 80053; 80076; 85027; 93005; 93016; 93018; 93225; 96361; 96365; 96375; 96376; 99223; 99232; 99233; 99239; 99285; 81003; 83036; 83735; 84443; 84484; 85025; 85379; 85610; 93010; 93017; J2060; J2785; J3475; J3490

== ENCOUNTER → 2018-04-05 08:52 | Outpatient (BNVA) | payer MEDICARE, BC, SELFPAY | PROVIDERS: PCP Nurse Practitioner Family; Visit Provider Internal Medicine Interventional Cardiology | DX: R69 Illness, unspecified (principal) ==

== ENCOUNTER → 2018-04-07 09:13 | Outpatient (BNVA) | payer MEDICARE, BC, SELFPAY | PROVIDERS: PCP Nurse Practitioner Family; Visit Provider Internal Medicine Cardiovascular Disease | DX: R69 Illness, unspecified (principal) ==

== ENCOUNTER 2018-04-21 09:56 | Outpatient (CLI) | payer MEDICARE, BC, SELFPAY ==
--- NOTE | 2018-04-21 09:47 | DI.RAD_ITS ---
SYMPTOMS/DIAGNOSIS: RIGHT WRIST PAIN, M25.531, SWELLING, S/P FALL RIGHT WRIST: Three views. No acute fracture, dislocation, lytic or sclerotic lesion is seen. At the 1st carpometacarpal joint, there is joint space narrowing, subchondral sclerosis and large osteophytes present. The soft tissues are unremarkable except for vascular calcifications. IMPRESSION: Marked osteoarthritis of the 1st carpometacarpal joint.
== END 2018-04-21 10:16 ==
PROVIDERS: PCP Nurse Practitioner Family; Visit Provider Nurse Practitioner Family
DX: S69.91XA Unspecified injury of right wrist, hand and finger(s), initial encounter (principal); M19.031 Primary osteoarthritis, right wrist
CPT/HCPCS: 73110

== ENCOUNTER 2018-04-29 12:00 | Outpatient (CLI) | payer MEDICARE, BC, SELFPAY | END 2018-04-29 12:20 | PROVIDERS: PCP Nurse Practitioner Family; Visit Provider Internal Medicine Cardiovascular Disease | DX: I47.1 Supraventricular tachycardia (principal); I44.0 Atrioventricular block, first degree | CPT/HCPCS: 0298T ==

== ENCOUNTER 2019-03-08 09:50 | Outpatient (CLI) | payer MEDICARE, BC, SELFPAY ==
--- NOTE | 2019-03-08 09:16 | DI.RAD_ITS ---
SYMPTOM/DIAGNOSIS: RIGHT SHOULDER PAIN RIGHT SHOULDER: There is prominent spurring at the AC joint and undersurface of the acromion. The glenohumeral joint space is well maintained. There is spurring of the glenoid and greater tuberosity. No tendon or joint space calcifications are seen. IMPRESSION: Degenerative changes of the AC joint and glenohumeral joint.
== END 2019-03-08 10:10 ==
PROVIDERS: PCP Nurse Practitioner Family; Referring Provider Nurse Practitioner Family; Visit Provider Orthopaedic Surgery
DX: M25.511 Pain in right shoulder (principal); M19.011 Primary osteoarthritis, right shoulder; M75.81 Other shoulder lesions, right shoulder
CPT/HCPCS: 20610; 99203; 99214; 73030; J1040

== ENCOUNTER 2019-03-28 01:29 | Outpatient (CLI) | payer MEDICARE, BC, SELFPAY ==
[2019-03-28 09:11] LABS: Hemoglobin A1C 6.1 % (4.5-6.2)
[2019-03-28 09:47] LABS: COMMENT (LAB VIEW ONLY) 18.85 mg/dL; Microalb ug/mg Crea 228.1 ug/mg Cr
[2019-03-28 10:17] LABS: ALT 40 U/L (16-63); AST 26 U/L (15-37); Alkaline Phosphatase 81 U/L (46-116); Anion Gap 9.3 mmol/L (3-11); BUN 24 mg/dL (7-18); CO2 30.7 mmol/L (21.0-32.0); CREATININE 1.13 mg/dL (0.70-1.30); Calcium 9.4 mg/dL (8.5-10.1); Calculated LDL 76 mg/dL; Chloride 102 mmol/L (98-107); Cholesterol 131 mg/dL (50-200); Glucose 101 mg/dL (70-100); HDL Cholesterol 36 mg/dL (40-60); Sodium 142 mmol/L (136-145); Total Protein 6.7 g/dL (6.4-8.2); Triglyceride 98 mg/dL (30-150); Vitamin B12 410 pg/mL (193-986)
[2019-03-29 13:46] LABS: Albumin 63.1 % (55.8-66.1); Total Protein 6.9 g/dl (6.3-8.2)
== END 2019-03-28 01:49 ==
PROVIDERS: PCP Nurse Practitioner Family; Visit Provider Nurse Practitioner Family
DX: I10 Essential (primary) hypertension (principal); E78.5 Hyperlipidemia, unspecified; E11.9 Type 2 diabetes mellitus without complications; G62.9 Polyneuropathy, unspecified
CPT/HCPCS: 36415; 80053; 80061; 82043; 82570; 82607; 83036; 84165

== ENCOUNTER → 2019-04-13 08:20 | Outpatient (BNVA) | payer MEDICARE, BC, SELFPAY | PROVIDERS: PCP Nurse Practitioner Family; Referring Provider Nurse Practitioner Family; Visit Provider Psychiatry & Neurology Neurology | DX: G62.9 Polyneuropathy, unspecified (principal); I10 Essential (primary) hypertension | CPT/HCPCS: 99215 ==

== ENCOUNTER → 2019-04-19 09:02 | Outpatient (BNVA) | payer MEDICARE, BC, SELFPAY | PROVIDERS: PCP Nurse Practitioner Family; Referring Provider Nurse Practitioner Family; Visit Provider Orthopaedic Surgery | DX: M19.011 Primary osteoarthritis, right shoulder (principal); Z98.890 Other specified postprocedural states | CPT/HCPCS: 99213 ==

== ENCOUNTER → 2019-06-15 08:30 | Outpatient (BNVA) | payer MEDICARE, BC, SELFPAY | PROVIDERS: PCP Nurse Practitioner Family; Referring Provider Nurse Practitioner Family; Visit Provider Orthopaedic Surgery | DX: M19.011 Primary osteoarthritis, right shoulder (principal); M75.81 Other shoulder lesions, right shoulder; I10 Essential (primary) hypertension; E11.9 Type 2 diabetes mellitus without complications | CPT/HCPCS: 99213 ==

== ENCOUNTER → 2019-06-16 14:35 | Outpatient (BNVA) | payer MEDICARE, BC, SELFPAY | PROVIDERS: PCP Nurse Practitioner Family; Referring Provider Nurse Practitioner Family; Visit Provider Psychiatry & Neurology Neurology | DX: E11.42 Type 2 diabetes mellitus with diabetic polyneuropathy (principal); D80.1 Nonfamilial hypogammaglobulinemia; G56.03 Carpal tunnel syndrome, bilateral upper limbs; I10 Essential (primary) hypertension; G31.84 Mild cognitive impairment of uncertain or unknown etiology | CPT/HCPCS: 99214 ==

== ENCOUNTER 2019-06-30 00:32 | Outpatient (CLI) | payer MEDICARE, BC, SELFPAY ==
--- NOTE | 2019-06-30 09:55 | DI.MRI_ITS ---
EXAM: MR UPPER JOINT RT WO CLINICAL HISTORY: R/O R ROTATOR CUFF TEAR, TENDINITIS, DEGENERATIVE JOINT DISEASE RT AC JOINT, M75.8 1, PRIMARY OA,M19.011 RT SHOULDER PAIN, LIFTING/PULLING INJURY TECHNIQUE: Multiplanar multisequence MRI was performed. COMPARISON: No exams were available for comparison FINDINGS: MR examination of the shoulder was performed according to the usual protocol. Prominent hypertrophic changes at the acromioclavicular joint with associated cystic changes noted. No other significant b dago signal abnormality seen. Glenoid labrum appears grossly intact as visualized. Biceps tendon is slightly displaced medially from the proximal bicipital groove. Abnormal signal noted in rotator int erval. There are attachment tears of subscapularis and supraspinatus tendons at the humerus without significant retraction. Minimal tearing of anterior fibers of infraspinatus may be present as well. The supraspinatus defect which appears to be primarily a partial-thickness undersurface tear is abou t 13 millimeters on coronal images. Subscapularis tear also probably partial thickness about 6-8 mil limeters maximum size. Apart from mild medial displacement of the biceps tendon, the tendon appears intact. IMPRESSION: Non retracted tears of subscapularis, supraspinatus, and infraspinatus as described above. Although there may be slight full-thickness component of supraspinatus tendon tear, these are predominantly pa rtial-thickness tears. Abnormal signal in rotator interval may represent tearing of rotator interval structures. Mild media l displacement of biceps tendon from the proximal aspect of the bicipital groove.
== END 2019-06-30 00:52 ==
PROVIDERS: PCP Nurse Practitioner Adult Health; Visit Provider Orthopaedic Surgery
DX: M25.511 Pain in right shoulder (principal); M19.011 Primary osteoarthritis, right shoulder; M75.101 Unspecified rotator cuff tear or rupture of right shoulder, not specified as traumatic; S46.211A Strain of muscle, fascia and tendon of other parts of biceps, right arm, initial encounter
CPT/HCPCS: 73221

== ENCOUNTER → 2019-07-19 09:25 | Outpatient (BNVA) | payer MEDICARE, BC, SELFPAY | PROVIDERS: PCP Nurse Practitioner Adult Health; Referring Provider Nurse Practitioner Family; Visit Provider Orthopaedic Surgery | DX: M75.101 Unspecified rotator cuff tear or rupture of right shoulder, not specified as traumatic (principal); M19.011 Primary osteoarthritis, right shoulder; G56.03 Carpal tunnel syndrome, bilateral upper limbs; F40.298 Other specified phobia | CPT/HCPCS: 99213 ==

== ENCOUNTER 2019-08-04 08:54 | Outpatient (CLI) | payer MEDICARE, BC, SELFPAY ==
--- NOTE | 2019-08-04 13:21 | W.PREOPHP ---
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 After discussion patient gives verbal understanding of risks and elects to proceed with scheduling surgery. Patient had opportunity to have questions answered to their satisfaction. They will contact office if issues arise. Additionally due to his extreme fear of needles he will also have his flu shot and DPT shots given while under anesthesia. Patient will be scheduled for right rotator cuff repair and associated procedures, open carpal tunnel and external neural lysis of the right median nerve with Dr. Collins. History of Present Illness Narrative: Mr. Frias is a 69-year-old male who presents for preoperative visit for scheduled right rotator cuff repair and open carpal tunnel release with Dr. Collins. Patient has been seen in clinic numerous times for both of these complaints. He is status post bilateral open carpal tunnel by Dr. Hou in 2018 but continued to have symptoms in both hand. Review of Dr. Collins's note from 07/19/19 states recent nerve conduction studies done at [facility] showed continue carpal tunnel syndrome, left greater than right, on top of a peripheral neuropathy. Has difficulty holding utensils and picking up any fine objects such as a kiera. He continues to have symptoms without relief despite being on gabapentin. Additionally patient has been seen for his right shoulder and AC joint pain that has been ongoing since January 2019 when he increased his activity while moving rocks. He has received a subacromial injection which provided relief for approximately 1 month. When he continued to have pain he was scheduled for MRI. MRI which as per Dr. Collins's note on 07/19/19 showed full-thickness tear rotator cuff on the right involving supraspinatus and subscapularis as well as DJD of the AC joint and biceps subluxation/dislocation. Due to his continued symptoms Dr. Collins offered surgical intervention and patient was eager to proceed. Pertinent Surgical Information Hospitalized for SVT at the end of March 2018 and has seen cardiology at [facility]. 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 Last visit note from 05/02/[address] Guaman note states he has not had any further episodes of SVT. He has a low likelihood of redeveloping SVT, given it has been a year without intercurrent episode...At this time, he does not require further routine cardiology follow-up. FLASH done at [facility] by Dr. Arce from 05/18/18 states summary was normal sinus rhythm; moderate concentric left ventricular hypertrophy; EF 59%; trace mitral regurgitation; trace tricuspid regurgitation ; aortic root is mildly dilated; mildly dilated ascending aorta. Denies past medical history of: stroke, recent angina, asthma, COPD, renal issues, liver issues, hepatitis, gastrointestinal ulcers, bleeding disorders, seizures, migraines, autoimmune disorders, thyroid issues Reports he was readmitted following his appendectomy that required hospitalization and severe trials of antibiotics. Happened as a college student; at [employer] [facility]. Reports one episode of syncope after his TKA in [facility] that was treated while inpatient in ~2012. He was in the ICU for one additional night. 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 Denies prior complications from anesthesia. Review of Systems Constitutional Constitutional: Denies fever(s), Denies frequent falls and Denies headache(s) Eyes Eyes: Denies change in vision ENT Ears, Nose, Mouth, and Throat: Denies dizziness, Denies ear discharge, Denies headache(s), Denies epistaxis, Denies nasal discharge, Reports post nasal drip, Denies sinus pressure and Reports sore throat (saw PCP;dry cough treated with nasal spray) Cardiovascular Cardiovascular: Denies chest pain, Denies chest pain at rest, Denies chest pain with activity, Denies diaphoresis, Denies syncope, Denies rapid heart rate, Denies irregular heart rhythm, Denies palpitations, Denies dyspnea, Denies dyspnea on exertion, Denies orthopnea, Denies paroxysmal nocturnal dyspnea and Denies slow heart rate Respiratory Respiratory: Reports cough, Denies dyspnea, Denies dyspnea on exertion and Denies wheezing Gastrointestinal Gastrointestinal: Denies abdominal pain, Denies melena, Denies hematochezia, Denies constipation, Denies diarrhea, Denies nausea and Denies vomiting Genitourinary Genitourinary: Denies hematuria, Denies dysuria and Denies urinary urgency Musculoskeletal Musculoskeletal: Reports as per HPI, Reports numbness and Reports tingling Neurologic Neurologic: Denies dizziness, Denies syncope, Denies frequent falls, Denies headache(s), Reports numbness and Reports tingling Psychiatric Psychiatric: Reports anxiety and Reports depression Endocrine Endocrine: Denies palpitations Allergic/Immunologic Allergic/Immunologic: Denies wheezing [facility] Medical History (Updated 08/04/19 @ 13:35 by Candida Vickers) Abdominal swelling (Chronic) CT and US negative for mass or fluid -- asymmetric fat deposition Abnormal ECG (Chronic 01/03/13) Poor R progression, QS in V2; neg MPI 01/14/13, Claude consult pre-op Adult BMI > 30 Bicipital tendinitis, right shoulder (Resolved) impingement syndrom R shoulder Cardiomyopathy, unspecified (Resolved) [facility] then [facility] Cardiology; 05/02/2019 [facility] Cardiology progress note: CM felt to be due to episode of SVT & now resolved, f/u w/ Cardiology PRN Carpal tunnel syndrome, bilateral (Chronic 07/12/14) [facility], Emelia Garsia PA-C 03/18/17 Mason Hou- mild bilateral carpal tunnel syndrome Sanchez angioma (Acute) 01/06/19 [facility] Dermatology Complete rotator cuff tear or rupture of right shoulder, not specified as traumatic (Resolved) Cubital tunnel syndrome, bilateral (Chronic 10/20/16) 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 (Chronic 07/03/15) Depression (Chronic) Diverticulosis of large intestine without diverticulitis (Chronic 01/06/12) Erectile dysfunction (Chronic 03/12/17) Essential hypertension (Chronic 02/15/13) GERD (gastroesophageal reflux disease) Hyperlipidemia, unspecified (Chronic 03/13/03) 07/2017 labwork: 10-year ASCVD risk = ~35% --> continue high intensity statin therapy Insomnia (Acute) Needle phobia (Chronic 11/18/17) OA (osteoarthritis) Obesity, unspecified (Chronic 07/03/15) CHRISS (obstructive sleep apnea) (Chronic 09/18/15) On CPAP Osteoarthritis (Chronic 01/06/12) WES KNEES, L >>R [facility] 01/2013 R shoulder-Dr Hou 04/24/16 Peripheral neuropathy (Chronic 01/25/15) PSVT (paroxysmal supraventricular tachycardia) (Resolved) 05/02/2019 [facility] Cardiology progress note: resolved, f/u w/ Cardiology PRN Seborrheic keratoses (Acute) 01/06/19 [facility] Dermatology (treated with cryosurgery) Tubular adenoma of colon (Inactive 09/10/16) HAS HAD 3 COLONSCOPIES, POLYPS IN FIRST AND THIRD (07/2012), SOME BLOOD ON HARD STOOL; COLONOSCOPY:TA 09/10/16 KYLE Type 2 diabetes mellitus without complication, without long-term current use of insulin (Chronic 08/24/17) Surgical History (Updated 08/04/19 @ 13:35 by Candida Vickers) bilateral eye surgery (03/08/15) lower eyelid lift - to reduce tearing Colonoscopy - MAC (09/10/16) Hemorrhoidal Banding (01/14/17) Hemorrhoidal Banding (04/14/17) Open Carpal Tunnel release (~08/2017) left, then R (08/2017) Replacement of total knee joint (01/24/13) [facility]; left S/P appendectomy (Acute) S/P left knee arthroscopy (Acute) S/P right knee arthroscopy (Acute) x3 S/P tonsillectomy (Acute) Social History (Updated 08/04/19 @ 13:41 by Candida Vickers) Smoking/Tobacco Use Status: Current-Occasional Tobacco Type: cigars Alcohol Intake: current Alcohol Intake frequency: a few times a week Drug use: Never Substance use type: does not use Household members: spouse Number of Children: 3 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 Current gender identity: male What type of physical activity do you participate in: walking Frequency: daily Do you feel safe at home: Yes Do you feel safe in your relationship?: Yes Additional Social history: He has two children and two stepchildren Meds Home Medications and Allergies Home Medications Medication Instructions Recorded Confirmed Type Xpdezteb-Lrriyz-BCN with vit D 2 ea PO DAILY 11/30/12 08/04/19 History ibuprofen [Advil] 800 mg PO TID PRN tab 06/17/13 08/04/19 History aspirin 81 mg PO DAILY tab 07/22/16 08/04/19 History cholecalciferol (vitamin D3) 2 tab PO DAILY 01/09/17 08/04/19 History Blood Glucose Test #100 strip 08/24/17 08/01/19 Rx blood-glucose meter #1 unit 08/24/17 08/01/19 Rx lancets #100 ea 08/24/17 08/01/19 Rx losartan 100 1 tab PO DAILY #90 tab-cap 08/27/18 08/04/19 Rx mg-hydrochlorothiazide 12.5 mg tablet gabapentin 800 mg tablet 1,200 mg PO TID #405 tab-cap 04/13/19 08/04/19 Rx trazodone 50 mg tablet 50 mg PO QHS PRN #30 tab 07/18/19 08/04/19 Rx atorvastatin 80 mg PO HS 08/04/19 08/04/19 History fluticasone propionate [Flonase 2 spray INTRANASAL BID PRN 08/04/19 08/04/19 History Allergy Relief] sertraline 50 mg PO HS 08/04/19 08/04/19 History Allergies Allergy/AdvReac Type Severity Reaction Status Date / Time Penicillins Allergy Unknown childhood Unverified 08/04/19 13:42 reaction diltiazem AdvReac Intermediate Swelling/Ed Unverified 08/04/19 13:42 harish lisinopril AdvReac Unknown unknown Unverified 08/04/19 13:42 Exam Const General: cooperative and no acute distress [facility] Head: normal to inspection, normocephalic and atraumatic Ears: external ears normal General nose exam: external nose normal and no nasal discharge Face and sinus: face symmetric Mouth: oral mucosae normal, lip normal, tongue normal and moist mucous membranes Teeth and gingiva: dentition normal Throat: posterior oropharynx normal Eyes General: appearance normal, both eyes and all related structures Pupils: PERRL EOM: EOM intact bilaterally Neck Neck: trachea midline Carotids: normal carotid upstroke Lymphatic: no lymphadenopathy noted Resp Effort & Inspection: normal respiratory effort and able to speak in complete sentences Auscultation: clear to auscultation bilaterally, no rales, no rhonchi and no wheezes Cardio Heart Sounds: S1 normal, S2 normal and no murmurs Pulses: radial pulses present bilaterally Skin General skin exam: no rashes or lesions noted
== END 2019-08-04 09:14 ==
PROVIDERS: PCP Nurse Practitioner Adult Health; Visit Provider Orthopaedic Surgery
DX: M19.011 Primary osteoarthritis, right shoulder (principal); M75.101 Unspecified rotator cuff tear or rupture of right shoulder, not specified as traumatic; G56.03 Carpal tunnel syndrome, bilateral upper limbs; Z01.818 Encounter for other preprocedural examination; I10 Essential (primary) hypertension
CPT/HCPCS: NC

== ENCOUNTER 2019-08-08 10:31 | Observation (INO) | payer MEDICARE, BC, SELFPAY ==
[2019-08-08] VITALS (10 sets, daily range): BP systolic 131–155; BP diastolic 80–94; PULSE 48–60; RESP 12–18; TEMP 36.2–36.9; O2SAT 93–97
[2019-08-08] MEDS: Lactated Ringers 1,000 ML 80 ML IV (07:15)
[2019-08-08] MEDS: Bupivacaine 0.5% Pres-Free 30 ML VIAL ×2 (07:32→10:35)
[2019-08-08] MEDS: Bupivacaine LIPOSOME/PF 133 MG/10 ML VIAL IJ (07:32)
[2019-08-08] MEDS: Midazolam/Ketamine/Ondansetron (3/25/2MG) 1 TAB 1 EACH SL (07:40)
[2019-08-08] MEDS: ceFAZolin 2 GM/50 ML BAG IVPB ×3 (07:44→20:11)
[2019-08-08] MEDS: Tetanus & Diphtheria Tox,ADULT 0.5 ML VIAL IM (08:20)
[2019-08-08] MEDS: Tranexamic Acid 1,000 MG/10 ML VIAL 1000 MG (10:15)
[2019-08-08] MEDS: POTASSIUM CHLORIDE/0.9% NACL 1,000 ML 150 MEQ IV (12:46)
[2019-08-08] MEDS: Gabapentin 600 MG TAB 1200 MG PO ×2 (14:28→20:12)
[2019-08-08] MEDS: Ketorolac 30 MG/ML VIAL IVP ×2 (16:51→21:55)
[2019-08-08] MEDS: Docusate Sodium 100 MG CAP PO (20:12)
[2019-08-08] MEDS: Atorvastatin 40 MG TAB 80 MG PO (21:54)
[2019-08-08] MEDS: Sertraline 50 MG TAB PO (21:54)
[2019-08-08] MEDS: Normal Saline Flush 10 ML SYR IVP (21:56)
[2019-08-09] VITALS (7 sets, daily range): BP systolic 103–153; BP diastolic 62–88; PULSE 46–53; RESP 16–22; TEMP 35.6–36.7; O2SAT 94–97
[2019-08-09] MEDS: oxyCODONE-CR 10 MG TABCR PO ×3 (00:03→23:12)
[2019-08-09] MEDS: ceFAZolin 2 GM/50 ML BAG IVPB ×2 (01:07→07:57)
[2019-08-09] MEDS: POTASSIUM CHLORIDE/0.9% NACL 1,000 ML 60 MEQ IV (01:42)
[2019-08-09] MEDS: Ketorolac 30 MG/ML VIAL IVP ×4 (04:07→21:55)
[2019-08-09] MEDS: Pantoprazole 40 MG TABCR PO (07:57)
[2019-08-09] MEDS: Losartan 50 MG TAB 100 MG PO (07:57)
[2019-08-09] MEDS: Gabapentin 600 MG TAB 1200 MG PO ×3 (07:57→19:47)
[2019-08-09] MEDS: hydroCHLOROthiazide 12.5 MG TAB PO (07:59)
[2019-08-09] MEDS: Aspirin E.C. 81 MG TABEC PO (07:59)
[2019-08-09] MEDS: HYDROcodone 5/Acetaminophen 325 TAB PO ×2 (08:03→21:55)
--- NOTE | 2019-08-09 09:59 | ROE_ITS ---
DATE OF PROCEDURE: August 08, 2019 PREOPERATIVE DIAGNOSIS: 1. Torn rotator cuff, right. 2. Recurrent carpal tunnel syndrome, right. 3. DJD AC joint, right. POSTOPERATIVE DIAGNOSIS: Same. PROCEDURE: 1. Open carpal tunnel release with external neurolysis of the median nerve on the right. 2. Repair of full-thickness tear rotator cuff, right. 3. Excision distal clavicle, right. 4. Tenotomy of the long head of the biceps tendon, right. ANESTHESIA: General, supplemented with a cervical block by Iain Drake CRNA SURGEON: Max Collins M.D. PLUMBING ENGINEER: Catrachito Navarro INDICATIONS: This is a 69-year-old white male with needle phobia who has disabling pain from a full- thickness rotator cuff on the right. He is also noted to have severe dysesthesias from carpal tunnel syndrome bilaterally. He was evaluated with nerve conduction studies by Dr. Grey. Despite a history of having a previous open carpal tunnel release, his nerve conduction studies continued to s how compression of the median nerve across the carpal tunnel. Because of his needle phobia I was ask ed if I could do an open carpal tunnel release with exploration of the median nerve under the same an esthetic that he is experiencing to get a rotator cuff repair. I recommended that we try the right s chris only and then if he has good results from the right side, would consider doing an open carpal marguerite gustavo release on the left, which is also a recurrent carpal tunnel release. The risks and complication s of all procedures were explained to the patient in detail preoperatively. PROCEDURE: The patient was taken to the operating room on 08/08/2019 where he was given a general ane sthetic. He was then given a cervical block with ultrasound guidance by Iain Drake CRNA. It was t hought that a very good block was obtained. The patient was placed supine. I applied a proximal anju rniquet to the right upper arm and then the right hand, wrist and forearm were prepped and draped dereck e in the usual sterile fashion. The right hand was exsanguinated by elevation and then the tournique t was inflated to 325 mmHg. An incision was made across the carpal tunnel, beginning at the distal e dge of the volar carpal ligament in the palm, in line with the ring finger metacarpal. The incision was then carried proximally across the flexion creases of the wrist, and incorporating some of his ol d scar from a previous carpal tunnel release. The incision was then carried proximal to the wrist, j ust ulnar to the palmaris longus tendon for a distance of about 2 to 2.5 inches. As the incision was carried down to the subcu, I encountered what appeared to be pristine normal forearm fascia. The fa scia was incised. The median nerve was identified and protected on the radial side of the incision. I proceeded to then incise the fascia until I reached the volar carpal ligament, then I was able to incise the volar carpal ligament on the ulnar side of the carpal tunnel until I reached the distal ed ge, completely transecting the volar carpal ligament. The median nerve was then inspected. There wa s some mild amount of adhesions with synovium sticking to the nerve, but for the most part the nerve looked fairly healthy. There was some mild narrowing of the nerve at the point of maximum compressio n. Using Littler scissors, I performed an external neurolysis of the median nerve. I then excised s ome hypertrophic or adherent synovium from around the flexor tendons. The wound was irrigated with s maría solution. The wound margins were infiltrated with 0.5% Marcaine solution and then the skin edg es were approximated with interrupted #4-0 nylon sutures. The wound was dressed with Xeroform gauze, sterile gauze 4x4's, ABD pads and wrapped with a Kerlix bandage and then wrapped with a 3-inch LUPILLO b andage. The tourniquet was released. There was no breakthrough bleeding to the dressings. A commer cial cockup wrist splint was applied over the dressings to immobilize the wrist. At this point the OR table was adjusted and the patient was placed in the magallon chair position. The right shoulder was prepped and draped free in the usual sterile fashion, carefully draping out the r ight forearm and hand. An incision was then made on the superior aspect of the shoulder, beginning o eliazar the distal couple of inches of the clavicle, carried laterally to the anterolateral corner of the acromion, and then carried distally to this, in line with the fibers of the deltoid, a distance of a bout 3 to 4 cm from the acromion. The anterior deltoid was sharply reflected from the anterior acrom ion. There was hypertrophic spurring of the anterior acromion and an acromioplasty was performed to correct any impingement on the rotator cuff. A flat file was then used to bevel and smooth the infer ior surface of the acromion. There was noted to be a full-thickness tear of the rotator cuff that be keith at the bicipital groove and extended posteriorly probably 4 cm in length. Although the biceps te ndon looked fairly healthy, it was displaced anteriorly and medially from the groove. I therefore sa crificed it with a tenotomy of the long head of the biceps intraarticular. This would eliminate the biceps as a pain generator. I prepared the footprint of attachment of the supraspinatus tendon with a rongeur and a nasal rasp. Two 6.5 anchors were placed, one anteriorly just posterior to the bicipital groove and one more poste riorly. Then I put some traction sutures in the rotator cuff, mobilized the cuff and then debrided t he retracted end of the cuff to healthy tissue. The sutures from the suture anchors were then passed through the rotator cuff tendon in a horizontal mattress fashion. The sutures were then tied, appro ximating the rotator cuff to the prepared bleeding bone on the greater tuberosity. I then accomplish ed a double-row repair by taking the sutures from the medial row and passing them to the lateral row using the VERSALOK anchors; two VERSALOK anchors were used. Additional sutures of #1 Vicryl suture m aterial were then placed to make a watertight closure. At this point when I tested the motion of the shoulder, I could easily bring the right arm to the side without any tension on the sutures or the r epair. The wound was irrigated with saline solution. One gram of tranexamic acid in 100 cc's of saline were then instilled into the wound and allowed to sit in the wound for a minute before suctioning. Obvio us bleeders were cauterized and a dry wound was obtained. Four drill holes were placed from superior to inferior through the anterior acromion and then the sutures were placed through the full-thicknes s of the anterior deltoid of #2 FiberWire; they were passed through the drill holes in the acromion i n a [id number] fashion. Four sutures were used. The sutures were then tied tightly, approximat ing the anterior deltoid to the bone of the acromion. A second layer of closure was accomplished by suturing the anterior deltoid fascia to the periosteum over the acromion with interrupted figure-of-e ight sutures of #1 Vicryl suture material. The distal centimeter of the clavicle was transected with an oscillating saw and excised. As I felt inside the decompressed AC joint with my finger, I found no pressure on the rotator cuff below. The resected end of the clavicle was packed with bone wax. The distal clavicle had been subperiosteally exposed. The AC joint capsule and periosteum over the distal clavicle were then approximated with in terrupted [id number] sutures of #1 Vicryl suture material. The lateral deltoid split was approx imated with interrupted [id number] sutures of #1 Vicryl suture material. The wound margins were infiltrated with 0.5% Marcaine solution. A running subcuticular closure of #4-0 Monocryl supplement ed with Steri-Strips was accomplished. The wound was dressed with Xeroform gauze, sterile gauze 4x4' s, ABD pads and then taped with foam elastic tape for a pressure dressing. The right upper extremity was then placed in an UltraSling abduction pillow splint to protect the rotator cuff repair. The patient's general anesthesia was reversed without complication. Estimated blood loss was 75-100 cc's. The patient tolerated the procedure well and was discharged to recovery in good condition. Th e patient will be admitted for postop pain control because of his needle phobia and the fact that he has no one to care for him at home at this time. It is estimated that he will just be admitted for O BV observation until he tolerates just p.o. pain meds.
[2019-08-09] MEDS: Docusate Sodium 100 MG CAP PO ×2 (13:31→19:47)
--- NOTE | 2019-08-09 14:42 | W.PM.PROGNOT ---
Date of Service Date of service: 08/09/19 Time of Service: 14:42 Assessment and Plan Assessment and plan (1) Right rotator cuff tear: Status: Acute Assessment and plan: Assessment: Stable postop day #1 open rotator cuff repair on the right. His scalene block has not worn off and he is quite comfortable. He actually could be discharged home in terms of his pain. However, he has had no help at home and I do not think to be safe to send him home at this time. He would benefit by it OT consult and also will have discharge planning work with home health services to help him when he gets home. I think if everything can be pulled together, he can home tomorrow afternoon provided his pain remains controlled. Plan: Occupational Therapy consult. Care management is working on home health services for when he gets home. And would plan discharge home tomorrow afternoon if arrangements can be finalized by then. DC IV fluids. (2) Carpal tunnel syndrome, bilateral: Status: Chronic Assessment and plan: Assessment: Stable postop day #1 open carpal tunnel release on the right. I think it will take many months for the sensation to improved because of how long he has had the symptoms. I think is a good positive sign that the nighttime dysesthesias in the median nerve distribution on the right are gone following the open carpal tunnel release. Plan: Continue splinting right wrist for 2 weeks. Continue observe for return of sensation. Subjective Subjective Patient reports: no new complaints and tolerating a regular diet Interval history since last seen: He says he is having no pain so far and is right upper extremity. He has had some increased dysesthesias at night in his left hand from carpal tunnel syndrome. He has not had this dysesthesia on the right side following open carpal tunnel release. We have a discussion today about what he will need for help at home as he recovers from his rotator cuff repair. He is from his and he does not have anybody at home to help him. Exam Narrative Exam Narrative: He is eating and drinking well. He is afebrile vital signs are stable. Right hand is warm with good pulses at the wrist. He has decreased sensation in the median nerve distribution of his right hand that is unchanged from preop. He is not using any extra pain medicines other than the scheduled meds so far. Objective Objective Clinical Data: Vital Signs Temperature 36.4 C L 08/09/19 11:55 Temperature Source Tympanic 08/09/19 11:55 Pulse 52 L 08/09/19 11:55 Pulse Rhythm Regular 08/09/19 08:05 Respiratory Rate 22 08/09/19 11:55 Respiratory Effort Non-Labored 08/09/19 08:05 Respiratory Depth Normal 08/09/19 08:05 Respiratory Pattern Normal 08/09/19 08:05 Blood Pressure 153/88 H 08/09/19 11:55 Pulse Oximetry 95 08/09/19 11:55 Respiratory End-tidal CO2 30 08/08/19 11:50 Oxygen Delivery Method Room Air 08/09/19 11:55 Oxygen Flow Rate 0 08/09/19 11:55 Fraction of Inspired Oxygen (FIO2) 21 08/09/19 08:18 Pain Level 3 08/09/19 13:31 Intake & Output 08/08/19 08/09/19 08/09/19 23:59 11:59 23:59 Intake Total 1342.5 / 2092.5 837.5 / 1237.5 400 / 1237.5 Balance 1342.5 / 2042.5 837.5 / 1237.5 400 / 1237.5 Intake: IV 1222.5 / 1972.5 237.5 / 237.5 Oral 120 / 120 600 / 1000 400 / 1000 Other: Urine Color Yellow Urine Appearance Clear Clear Urine Odor Normal Voiding Methods Toilet Toilet
--- NOTE | 2019-08-09 15:08 | PHARADMIT ---
Admission Pharmacy Clinical Review surgery on rotator cuff Code Status Full Code Current Weight 133.4 kg Renally Cleared and Narrow Therapeutic Index Meds Crcl ~84.7 mL/min using adjusted body weight QTc Value / Action Taken none BP Control, Fever BP 153/88 afebrile Electrolytes reviewed no labs DVT Prophylaxis none Opiate Usage / Scheduled Bowel Regimen Ordered luis miguel and prn/luis miguel docusate Plt/SCr for Heparin / Enoxaparin no labs INR for Warfarin n/a H/H stable, WBC/Bands no labs Antibiotic appropriateness none Cultures and Sensitivities none Surgical ABX d/c within 24 hr yes DM control / Insulin Dosing BG 126 none Heart Failure (Check EF%) (LUPILLO's, B-Block, Diuretics) hydrochlorothiazide, losartan, IV to PO Switch n/a Home Meds Reviewed -ibuprofen may increase the bleed risk and diminish the cardioprotective effect of aspirin. aspirin may decrease the serum concentration of ibuprofen -sertraline may enhance the antiplatelet effect of ibuprofen; ibuprofen may diminish the therapeutic effect of sertraline Home Meds Not Ordered [id number], ibuprofen (has ketorolac ordered) Comments possible discharge tomorrow afternoon?
--- NOTE | 2019-08-09 15:16 | W.NUTCONSULT ---
Date of service: 08/09/19 Time of Service: 15:16 Nutritional Consult ASSESSMENT: 69 year old male s/p right rotator cuff repair. Following regular meal plan with excellent intake. BMI indicates morbid obesity. Not at nutritional risk at this time. Time Spent in Nutritional Counseling and Treatment: 0 time spent face to face
--- NOTE | 2019-08-09 15:30 | CHAPLAIN ---
Naman was sitting up in a chair working on a [employer] puzzle. 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 Naman told me about his surgery yesterday, rotator cuff and carpel tunnel. He expects to be going home tomorrow but lives alone so he said his Accounting Officer is setting him up with some services. Naman also said he has a neighbor who lives across the street who has offered to help. His three children live at a distance, [place], [place] and somewhere else. He said he is learning to write and text with his left hand. Naman complimented the staff here and said everyone he has interacted with has been kind and pleasant.
[2019-08-09] MEDS: Normal Saline Flush 10 ML SYR IVP ×2 (15:34→21:55)
--- NOTE | 2019-08-09 17:52 | PDOC.CMIN ---
- If Service Date Differs Date of service: 08/09/19 Time of Service: 17:52 Care Management Initial Assess REASON FOR HOSPITALIZATION:: Rotator Cuff and Carpel Tunnel repairs PAST MEDICAL HISTORY/PAST SURGICAL HISTORY:: Medical History (Updated 08/04/19 @ 13:35 by Candida Vickers). Abdominal swelling (Chronic). CT and US negative for mass or fluid -- asymmetric fat deposition. Abnormal ECG (Chronic 01/03/13). Poor R progression, QS in V2; neg MPI 01/14/13, Claude consult pre-op. Adult BMI > 30. Bicipital tendinitis, right shoulder (Resolved). impingement syndrom R shoulder. Cardiomyopathy, unspecified (Resolved). [facility]; 05/02/2019 [facility] progress note: CM felt to be due to episode of SVT & now resolved, f/u w/ Cardiology PRN. Carpal tunnel syndrome, bilateral (Chronic 07/12/14). [facility], Emelia Garsia PA-C. 03/18/17 Mason Hou- mild bilateral carpal tunnel syndrome. Snachez angioma (Acute). 01/06/19 [facility]. Complete rotator cuff tear or rupture of right shoulder, not specified as traumatic (Resolved). Cubital tunnel syndrome, bilateral (Chronic 10/20/16). 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 Depression (Chronic). Diverticulosis of large intestine without diverticulitis (Chronic 01/06/12). Erectile dysfunction (Chronic 03/12/17). Essential hypertension (Chronic 02/15/13). GERD (gastroesophageal reflux disease). Hyperlipidemia, unspecified (Chronic 03/13/03). 07/2017 labwork: 10-year ASCVD risk = ~35% --> continue high intensity statin therapy. Insomnia (Acute). Needle phobia (Chronic 11/18/17). OA (osteoarthritis). Obesity, unspecified (Chronic 07/03/15). CHRISS (obstructive sleep apnea) (Chronic 09/18/15). On CPAP. Osteoarthritis (Chronic 01/06/12). WES KNEES, L >>R. [facility] 01/2013. R shoulder-Dr Hou 04/24/16. Peripheral neuropathy (Chronic 01/25/15). PSVT (paroxysmal supraventricular tachycardia) (Resolved). 05/02/2019 [facility] progress note: resolved, f/u w/ Cardiology PRN. Seborrheic keratoses (Acute). 01/06/19 [facility] (treated with cryosurgery). Tubular adenoma of colon (Inactive 09/10/16). HAS HAD 3 COLONSCOPIES, POLYPS IN FIRST AND THIRD (07/2012), SOME BLOOD ON HARD STOOL; COLONOSCOPY:TA 09/10/16 KYLE. Type 2 diabetes mellitus without complication, without long-term current use of insulin (Chronic 08/24/17). Surgical History (Updated 08/04/19 @ 13:35 by Candida Vickers). bilateral eye surgery (03/08/15). lower eyelid lift - to reduce tearing. Colonoscopy - MAC (09/10/16). Hemorrhoidal Banding (01/14/17). Hemorrhoidal Banding (04/14/17). Open Carpal Tunnel release (~08/2017). left, then R (08/2017). 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 Efraín at [facility]; left. S/P appendectomy (Acute). S/P left knee arthroscopy (Acute). S/P right knee arthroscopy (Acute). x3. S/P tonsillectomy (Acute) PREVIOUS FUNCTIONAL STATUS/SOCIAL/FAMILY SUPPORTS:: Ace lives alone in [place]. 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 He is very active- maintaining his own home and landscaping needs. He has many friends in the community who are identified as supportive. He is independent at baseline. CURRENT FUNCTIONAL STATUS:: Ace was sitting up in his chair when CM met with him. He was pleasant and engaged in conversation. He reported that he is nervous about returning home as he is right handed and he cannot use his right arm/hand at this time due to his surgery. He is unsure how he will make meals and care for his post surgical dressings. CM alerted the MD, suggesting an OT consult while at [facility]. CM also sent a MOW referral to [facility]. CM will continue to follow. ADVANCE DIRECTIVES:: None on file. Has patient been provided with information about the portal?: Yes Did the patient sign up for the portal?: Yes CODE STATUS:: Full Code INSURANCE COVERAGE / FINANCIAL ISSUES:: MCR/ BCBS CURRENT HOME/COMMUNITY SERVICES/EQUIPMENT:: Ace currently does not have any services or equipment. PRIMARY CARE PHYSICIAN:: Brandy Mckeon POTENTIAL DISCHARGE NEEDS:: Evaluation for further needs, including HH, MOW, etc. follow up appts. PATIENT/FAMILY EDUCATION NEEDS:: Review discharge instructions regarding activity and medications, discussion of self care needs including ask me three ANTICIPATED BARRIERS TO DISCHARGE:: None identified at this time. TRANSPORTATION:: Anticipate he will transport home via private vehicle by friends PLAN:: Anticipate Ace will return home when medically ready with new orders for HH RN, OT, HOUSEKEEPER HEAD (?). CM sent referral to [facility] for MOW. He will follow up with Ortho as recommended. He will transport home via private vehicle by friends when ready. CM will continue to follow.
[2019-08-09] MEDS: Sertraline 50 MG TAB PO (21:55)
[2019-08-09] MEDS: Atorvastatin 40 MG TAB 80 MG PO (21:55)
[2019-08-10] MEDS: Normal Saline Flush 10 ML SYR IVP ×3 (03:53→09:58)
[2019-08-10] MEDS: Ketorolac 30 MG/ML VIAL IVP ×2 (03:53→09:57)
[2019-08-10 03:54] VITALS: BP 125/81; PULSE 44; RESP 20; O2SAT 96
[2019-08-10 07:29] VITALS: BP 129/82; PULSE 48; RESP 18; TEMP 36.5; O2SAT 96
[2019-08-10] MEDS: Pantoprazole 40 MG TABCR PO (07:48)
[2019-08-10] MEDS: HYDROcodone 5/Acetaminophen 325 TAB PO (07:48)
[2019-08-10] MEDS: Docusate Sodium 100 MG CAP PO ×2 (07:49→13:45)
[2019-08-10] MEDS: Aspirin E.C. 81 MG TABEC PO (07:49)
[2019-08-10] MEDS: Gabapentin 600 MG TAB 1200 MG PO ×2 (07:49→13:45)
[2019-08-10] MEDS: hydroCHLOROthiazide 12.5 MG TAB PO (07:58)
[2019-08-10] MEDS: Losartan 50 MG TAB 100 MG PO (07:58)
--- NOTE | 2019-08-10 09:43 | OTIE_ITS ---
Occupational Therapy Notes Inpatient Occupational Therapy Evaluation Date: 08/10/19 Referring Doctor:Max Collins MD OT Orders: Urgent- Eval and Treat Precautions: Rotator cuff repair precautions PATIENT PROFILE/ADMITTING DIAGNOSIS: Pt is a 69 year old male who was admitted s/p a (R) rotator cuff repair and (R) CTR performed by Dr. Collins on 08/09/19. Past Medical History- Medical History (Updated 08/04/19 @ 13:35 by Candida Vickers) Abdominal swelling (Chronic) CT and US negative for mass or fluid -- asymmetric fat deposition Abnormal ECG (Chronic 01/03/13) Poor R progression, QS in V2; neg MPI 01/14/13, Claude consult pre-op Adult BMI > 30 Bicipital tendinitis, right shoulder (Resolved) impingement syndrom R shoulder Cardiomyopathy, unspecified (Resolved) [facility] [place] [facility] [place] [place]: CM felt to be due to episode of SVT & now resolved, f/u w/ Cardiology PRN Carpal tunnel syndrome, bilateral (Chronic 07/12/14) [facility], Emelia Garsia PA-C 03/18/17 Mason Hou- mild bilateral carpal tunnel syndrome Sanchez angioma (Acute) 01/06/19 [facility] Complete rotator cuff tear or rupture of right shoulder, not specified as traumatic (Resolved) Cubital tunnel syndrome, bilateral (Chronic 10/20/16) 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 (Chronic 07/03/15) Depression (Chronic) Diverticulosis of large intestine without diverticulitis (Chronic 01/06/12) Erectile dysfunction (Chronic 03/12/17) Essential hypertension (Chronic 02/15/13) GERD (gastroesophageal reflux disease) Hyperlipidemia, unspecified (Chronic 03/13/03) 07/2017 labwork: 10-year ASCVD risk = ~35% --> continue high intensity statin therapy Insomnia (Acute) Needle phobia (Chronic 11/18/17) OA (osteoarthritis) Obesity, unspecified (Chronic 07/03/15) CHRISS (obstructive sleep apnea) (Chronic 09/18/15) On CPAP Osteoarthritis (Chronic 01/06/12) WES KNEES, L >>R [facility] 01/2013 R shoulder-Dr Hou 04/24/16 Peripheral neuropathy (Chronic 01/25/15) PSVT (paroxysmal supraventricular tachycardia) (Resolved) 05/02/2019 [facility] [place]: resolved, f/u w/ Cardiology PRN Seborrheic keratoses (Acute) 01/06/19 [facility] [place] (treated with cryosurgery) Tubular adenoma of colon (Inactive 09/10/16) HAS HAD 3 COLONSCOPIES, POLYPS IN FIRST AND THIRD (07/2012), SOME BLOOD ON HARD STOOL; COLONOSCOPY:TA 09/10/16 [facility] Type 2 diabetes mellitus without complication, without long-term current use of insulin (Chronic 08/24/17) Surgical History (Updated 08/04/19 @ 13:35 by Candida Vickers) bilateral eye surgery (03/08/15) lower eyelid lift - to reduce tearing Colonoscopy - MAC (09/10/16) Hemorrhoidal Banding (01/14/17) Hemorrhoidal Banding (04/14/17) Open Carpal Tunnel release (~08/2017) left, then R (08/2017) Replacement of total knee joint (01/24/13) Efraín at [facility]; left S/P appendectomy (Acute) S/P left knee arthroscopy (Acute) S/P right knee arthroscopy (Acute) x3 S/P tonsillectomy (Acute) Social History/Home Situation: Pt lives in a private home in [place]. He is (I) at baseline with driving, dressing, bathing, grooming and functional mobility. He is nervous about returning home. He has a lot of questions regarding functional (I) and how he will cook, put his shorts on and perform his bathing routine. He states that he has a long driveway and walks down his driveway to get his mail so he is nervous about falling, he does have steps into his basement. He has a walk in shower and has no issues at baseline with performance of his bathing routine. Equipment owned/DME: None at home, OT provided pt with some please refer to below. SUBJECTIVE: Pt was sitting in chair when OT arrived with Cryo cuff on (R) shoulder, he notes that he is extremely nervous to go home and that he is unsure as to how he will perform his ADLs. He states that he wants as minimal pain as he can and if that means he will sit in the sling he plans to do that. OBJECTIVE: General Observation: (R) sling with bolster, Cryo cuff on (R) shoulder, pt is pleasant and answers questions appropriately. Mental Status: A&Ox4 Pain: c/o pain in (R) UE 3/10 reports that it was a 7/10 this morning. ROM: RUE No AROM per rotator cuff L UE AROM WFL STRENGTH: RUE NT LUE Shoulder flexion 5/5, bicep 5/5, tricep 5/5, field horticultural specialty grower is strong *Pt is (R) hand dominant. SENSATION: Pt intact to light touch and sensation to (R) hand, c/o numbness and tingling (L) which is due to CTS. FUNCTIONAL MOBILITY/ADLS: OT and pt discuss performance of ADLs in the home setting and in terms of functional (I). OT provides pt with adaptive equipment including investor relations coordinator, dressing stick and show horn to increase his functional (I) in the home setting for dressing and just functional activities in general. Pt was receptive to this, OT did discuss with pt HHPT/OT which I do feel pt would benefit from. Pt is receptive to this as well as meals on wheels. OT educates pt on performance of his ADLs. Pt states that without (A) he is not sure that he will remove his sling or bath. OT feels that HH will help pt be successful in the home environment. BALANCE: Static sitting Normal Dynamic Sitting Normal SPECIAL TESTS: Daily Activity Limitations Standardized Measure [facility] AM -PAC ?6 clicks? Daily Activity Inpatient Short Form: Raw score: 21 Standardized score: 47.10 CMS score: 32.79% INFORMED CONSENT/EDUCATION: Pt instructed in purpose of OT Consult and plan of care. ASSESSMENT: Patient is a 69-year-old male referred to occupational therapy services with diagnosis of s/p a (R) rotator cuff repair and (R) CTR performed by Dr. Collins on 08/09/19. Patient presents with clinical signs and symptoms consistent with dx, as demonstrated by the following impairment level findings: Pain in (R) UE, use of sling on (R) UE with bolster in place, decreased gross and fine motor control of (R) UE, rotator cuff precautions. Impairments are contributing to the following functional limitations: No AROM (R) UE, decreased performance of ADLs including cooking, bathing, dressing, anxiety for increased pain with functional use. AMPAC score 21 Patient is assessed as Moderate 17007 complexity based on the following: History: See Above Examination: See functional limitations as noted above Presentation: Evolving Decision Making: AMPAC score 21 GOALS N/A PLAN OF CARE/TREATMENT PLAN: OT consult only. DISCHARGE RECOMMENDATIONS OT recommends that pt return home with PT/OT and Nursing services for assessment of performance of ADLs in the home setting as well as functional (I). OT does feel that with support and education in the home setting pt will be able to return home. OT also recommends that pt has meals on wheels for increased functional (I) in eating/cooking routines. TREATMENT TIME/MINUTES/CODES [id number], [id number], 30 minutes (08:30) Anitha Strauss OTR/[facility]
[2019-08-10 11:28] VITALS: BP 126/76; PULSE 55; RESP 19; TEMP 36.9; O2SAT 95
[2019-08-10] MEDS: oxyCODONE-CR 10 MG TABCR PO (11:53)
--- NOTE | 2019-08-10 13:51 | W.PM.DS.N ---
Date of service: 08/10/19 Time of Service: 13:52 DS: Diagnosis Discharge Diagnosis (1) Right rotator cuff tear: Status: Acute (2) Carpal tunnel syndrome, bilateral: Status: Chronic Discharge Plan Disposition Patient Disposition: HOME W/HOME HEALTH SERVICE Condition: Good Discharge Details Reason For Visit: POST-OP R ROTATOR CUFF REPAIR Admit Date/Time: 08/08/19 10:31 Admit Provider: Max Collins Attending Provider: Max Collins Primary Care Provider: Brandy Mckeon Hospital Course Hospital Course: Patient was taken the operating on date initially underwent an open right rotator cuff repair, excision distal clavicle, and tenotomy of the long head of the biceps tendon, along with an open median nerve neural lysis at the carpal tunnel. He was admitted postoperatively for pain control and also because he had no one to assist him at home postoperatively. He remained afebrile throughout his postoperative course. He had good relief of pain until his block wore off earlier today. He had some rebound pain that was easily controlled with the pain medicines ordered. He was treated with multimodal pain regimen. OT was consulted. Care management was consulted and plans are finalized for home health services starting tomorrow on 08/11/2019. His shoulder dressing was removed and his incision was clean and dry with no signs of infection. I felt that this point he completed acute care phase of his hospitalization. I also felt that discharge plans were satisfactory for safe home discharge with home health follow-up. I therefore discharged him home with a follow-up with me in 2 weeks. Home Meds and New Rx's Prescriptions: New ibuprofen 800 mg tablet 800 mg PO TID Qty: 60 RF: 0 hydrocodone-acetaminophen 5-325 mg tablet 1 tab PO Q4H PRN (Reason: pain) Qty: 30 RF: 0 Discontinued ibuprofen [Advil] 200 MG tablet 800 mg PO TID PRNRF: 0 No Action gabapentin 800 mg tablet 1,200 mg PO TID Qty: 405 RF: 3 trazodone 50 mg tablet 50 mg PO QHS PRN (Reason: sleep) Qty: 30 RF: 1 Kmyfgnip-Iemzov-ULU with vit D 1 EACH tablet 2 ea PO DAILY RF: 0 aspirin 81 MG tablet,delayed release (DR/EC) 81 mg PO DAILY RF: 0 (DME) blood-glucose meter 1 EACH misc 1 ea Miscellaneous DAILY Qty: 1 RF: 0 (DME) Blood Glucose Test 1 EACH strip 1 ea Miscellaneous DAILY Qty: 100 RF: 3 (DME) lancets 1 EACH misc 1 ea Miscellaneous DAILY Qty: 100 RF: 3 losartan-hydrochlorothiazide 100-12.5 mg tablet 1 tab PO DAILY Qty: 90 RF: 3 cholecalciferol (vitamin D3) 5,000 UNIT capsule 2 tab PO DAILY RF: 0 atorvastatin 80 mg tablet 80 mg PO HS RF: 0 sertraline 50 mg tablet 50 mg PO HS RF: 0 fluticasone propionate [Flonase Allergy Relief] 50 mcg/actuation [place],Suspension 2 spray INTRANASAL BID PRNRF: 0 Chely-Thida Plus Cold (PE) 2-7.8-325 mg Tablet, Effervescent PO RF: 0 Discharge Instructions Additional Instructions: Wear sling/pillow at all times, 02/02. May remove to shower and dress. When out of sling keep R arm at side--don't reach away from body with R arm to avoid stressing your rotator cuff repair. Sleep in a recliner or propped up on pillows in bed. Leave shoulder incision uncovered. Keep splint and dressings R wrist dry and in place. Cover with plastic bag sealed with rubber band to shower. Use cryocuff on R shoulder 4 times/day for 1 hour each time. Take ibuprofen as prescribed 3 times a day. Take hydrocodone for breakthru pain, if needed. Follow up in 's office in 2 weeks. Home health services starting tomorrow. Stand Alone Forms: Nursing Discharge Form Referrals: Max Collins MD [ [facility] STAFF PHYSICIAN] - (f/u in 2 weeks.) Activity:: Activity as Tolerated Equipment/Supplies:: sling/pillow Diet:: As Tolerated Discharge Orders Discharge Orders: Discharge Order (Routine); Ordered 08/10/19 Ordered By: Max Collins DS: Summary Status at Discharge Functional status at discharge: independent ambulation Overall status at discharge: patient is progressing back to baseline Mental Status: mental status grossly normal Speech and Movement: speech and movement normal Mood: congruent mood Affect: normal affect Exam Psych Mental Status: mental status grossly normal Speech and Movement: speech and movement normal Mood: congruent mood Affect: normal affect DS: Data Vitals/I&O Vitals and I&O: Vital Signs Temperature 36.9 C 08/10/19 11:28 Temperature Source Tympanic 08/10/19 11:28 Pulse 55 L 08/10/19 11:28 Pulse Rhythm Regular 08/10/19 08:04 Respiratory Rate 19 08/10/19 11:28 Respiratory Effort Non-Labored 08/10/19 08:04 Respiratory Depth Normal 08/10/19 08:04 Respiratory Pattern Normal 08/10/19 08:04 Blood Pressure 126/76 08/10/19 11:28 Pulse Oximetry 95 08/10/19 11:28 Respiratory End-tidal CO2 30 08/08/19 11:50 Oxygen Delivery Method Room Air 08/10/19 11:28 Oxygen Flow Rate 0 08/10/19 11:28 Fraction of Inspired Oxygen (FIO2) 21 08/10/19 11:12 Pain Level 3 08/10/19 11:53 Comment 08/10/19 03:54 Intake & Output 08/09/19 08/10/19 08/10/19 23:59 11:59 23:59 Intake Total 2556 / 3393.5 250 / 490 240 / 490 Balance 2556 / 3393.5 250 / 490 240 / 490 Intake: IV 826 / 1063.5 10 10 Oral 1730 / 2330 240 / 480 240 / 480 Other: Urine Color Yellow Urine Appearance Clear Clear Urine Odor Normal Comment Voiding ad efraín Voiding Methods Toilet Toilet [facility] Social History (Updated 08/04/19 @ 13:41 by Candida Vickers) Smoking/Tobacco Use Status: Current-Occasional Tobacco Type: cigars Alcohol Intake: current Alcohol Intake frequency: a few times a week Alcohol type: wine and hard liquor Drug use: Never Substance use type: does not use Details: alcohol: new year's Household members: spouse Number of Children: 3 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 Current gender identity: male What type of physical activity do you participate in: walking Frequency: daily Do you feel safe at home: Yes Do you feel safe in your relationship?: Yes Additional Social history: He has two children and two stepchildren
--- NOTE | 2019-08-10 14:10 | PDOC.HHF2F_ITS ---
Home Health Certification Home Health Certification: 1. Encounter Date and Reason I certify that ABDIFATAH HERNANDEZ was seen by Max Collins MD on 08/10/19 and that I had a [id number] encounter with this patient that meets the physician face to face encounter requirements. 2. Clinical Findings Supporting Skilled Need and Homebound Status I certify that home health services are medically necessary, include either intermittent residential and/or physical/speech therapy, and that this pat ient is homebound in that absences from the home require considerable and taxing effort and are infrequent or of short duration, or are attributable to the need to receive medical care. [X] (a) Attached documentation from encounter provides clinical findings supporting skilled need and homebound status (including what assistance patient requires to leave the home). The encounter with the patient was in whole, or in part, for the following medical condition, which is the primary reason for home health care: POST-OP R ROTATOR CUFF REPAIR Long Term:Will need help with ADL's and hygiene since he can't use dominant hand secondary to surgery. Physical Therapy:Occupational therapy to work with him to better use LUE since he can't use his RUE following rotator cuff repair. Speech Therapy: Homebound:Can't use RUE due to surgery. He is right-handed. Can't drive and lives alone. 3. Certification and Authentication I certify that I composed the above information based on my clinical judgement relating to this patient's medical condition and, if applicable, clinical findings communicated to me by the NPP or inpatient physician who performed the Home Health Referral. All further orders will be obtained through (Community Based Physician - PCP)
--- NOTE | 2019-08-10 15:56 | PDOC.CMDIS ---
- If Service Date Differs Date of service: 08/10/19 Time of Service: 15:56 LACE Index Scoring Tool - Questions: Length of Stay (in days): 2 Acuity (Admit via E.D.?): No Comorbidities: Diabetes w/o Complication E.D. Visits: 0 - Answers: Total Score: 3 Risk of Readmission: Low Risk Care Management Discharge Reason for Hospitalization: Rotator Cuff and Carpel Tunnel repairs Discharge Plan: Ace will go home with new services of nursing and OT. He will follow up with his surgeon, PCP and discharge plan of care. He will transport via private vehicle with friends. Patient/Family Education Needs: Discharge plan, limitations, follow up plan, Ask ME Three.
== END 2019-08-10 15:16 | disposition home health service (06) ==
LOC: MS 12:17
PROVIDERS: Admitting Provider Orthopaedic Surgery; PCP Nurse Practitioner Adult Health; Visit Provider Orthopaedic Surgery
PROC: 0LM10ZZ Reattachment of Right Shoulder Tendon, Open Approach (ICD-10-PCS; CPT 23410; principal; 2019-08-08 07:30)
PROC: 0LM10ZZ Reattachment of Right Shoulder Tendon, Open Approach (ICD-10-PCS; CPT 64721; 2019-08-08 07:30)
DX: S46.011A Strain of muscle(s) and tendon(s) of the rotator cuff of right shoulder, initial encounter (principal); X50.0XXA Overexertion from strenuous movement or load, initial encounter; G56.01 Carpal tunnel syndrome, right upper limb; M19.011 Primary osteoarthritis, right shoulder; G89.18 Other acute postprocedural pain; Z60.2 Problems related to living alone; I10 Essential (primary) hypertension; K21.9 Gastro-esophageal reflux disease without esophagitis; F40.298 Other specified phobia; G47.33 Obstructive sleep apnea (adult) (pediatric); G62.9 Polyneuropathy, unspecified; E78.5 Hyperlipidemia, unspecified
CPT/HCPCS: 23410; 23120; 64721; 24310; 76942; C1713; NC; 97530; G0378; J0690; J1100; J1885; J2250; J2370; J2405; J2704; L3670; L3908

== ENCOUNTER → 2019-08-24 10:57 | Outpatient (BNVA) | payer MEDICARE, BC, SELFPAY | PROVIDERS: PCP Nurse Practitioner Adult Health; Referring Provider Nurse Practitioner Adult Health; Visit Provider Orthopaedic Surgery | DX: Z47.89 Encounter for other orthopedic aftercare (principal) ==

== ENCOUNTER 2019-09-21 10:49 | Outpatient (CLI) | payer MEDICARE, BC, SELFPAY ==
--- NOTE | 2019-09-21 10:30 | DI.RAD_ITS ---
EXAM: XR SHOULDER RT 1V CLINICAL HISTORY: f/u surgery. TECHNIQUE: 2D digital imaging was performed. COMPARISON: MR UPPER JOINT RT WO from 06/30/2019 FINDINGS: BONES: No acute fracture is present. No bony destructive lesion is seen. There has been resection o f the distal clavicle. There are metallic anchors in the humeral head related to previous rotator cu ff repair. Degenerative changes are seen at the glenohumeral joint. Humeral head is normally positi on. SOFT TISSUE: Normal. DATA REPOSITORY: RADIATION DOSE DELIVERED:
== END 2019-09-21 11:09 ==
PROVIDERS: PCP Nurse Practitioner Adult Health; Referring Provider Nurse Practitioner Adult Health; Visit Provider Orthopaedic Surgery
DX: S46.011D Strain of muscle(s) and tendon(s) of the rotator cuff of right shoulder, subsequent encounter (principal); M19.011 Primary osteoarthritis, right shoulder; Z98.890 Other specified postprocedural states; X58.XXXD Exposure to other specified factors, subsequent encounter
CPT/HCPCS: 73020

== ENCOUNTER → 2019-11-02 09:33 | Outpatient (BNVA) | payer MEDICARE, BC, SELFPAY | PROVIDERS: PCP Nurse Practitioner Adult Health; Referring Provider Nurse Practitioner Adult Health; Visit Provider Orthopaedic Surgery | DX: Z47.89 Encounter for other orthopedic aftercare ==

== ENCOUNTER → 2019-12-28 08:54 | Outpatient (BNVA) | payer MEDICARE, BC, SELFPAY | PROVIDERS: PCP Nurse Practitioner Adult Health; Visit Provider Orthopaedic Surgery | DX: M62.81 Muscle weakness (generalized); Z47.89 Encounter for other orthopedic aftercare | CPT/HCPCS: 99213 ==

== ENCOUNTER 2020-02-20 03:21 | Outpatient (CLI) | payer MEDICARE, BC, SELFPAY ==
--- NOTE | 2020-02-20 11:00 | NS.NUTBLAN_ITS ---
Medical Nutrition Therapy provided for Ace in outpatient setting for Type 2 Diabetes and obesity. Wt: 300 lbs, 5'11 BMI 42. Diet controlled diabetes, most recent A1C: 6.1 mg/dl (03/2019). Meds reviewed. Overall, healthy 69 year old retired male with increased weight since retiring. Diet recall indicates high amounts of simple carbs, large servings and no routine exercise. Ace states he has depressed mood due to recent divorce and having to sell home. Reviewed diet principles to reduce blood sugars, reduce insulin production and to burn body fat. Education included lower carb diet (80-100 grams carbs) with emphasis on complex carbs, lean protein and non starchy vegetables. Encouraged routine exercise, walk 1 mile daily, including current PT exercises s/p recent shoulder surgery. Reviewed risks associated with obesity, diabetes, hypertension and waist size. Provided resource to use to log daily food intake ([employer]) and encouraged Ace to follow up with chief writer every week and provide update on concerns, difficulties. Goal: 10 lbs wieght loss per month, with goal weight of 250 lbs. Follow up visit scheduled for 03/19/20 at 11 am.
== END 2020-02-20 03:41 ==
PROVIDERS: PCP Nurse Practitioner Adult Health; Visit Provider Dietitian, Registered
DX: E11.9 Type 2 diabetes mellitus without complications (principal); E66.9 Obesity, unspecified; Z71.3 Dietary counseling and surveillance
CPT/HCPCS: 97802

== ENCOUNTER 2020-03-02 08:31 | Outpatient (CLI) | payer MEDICARE, BC, SELFPAY ==
[2020-03-02 10:49] LABS: Hemoglobin A1C 5.9 % (3.8-5.6)
[2020-03-02 10:49] LABS: COMMENT (LAB VIEW ONLY) 185.47 mg/dL; Microalb ug/mg Crea 131.7 ug/mg Cr
[2020-03-02 10:50] LABS: ALT 30 U/L (16-63); AST 22 U/L (15-37); Alkaline Phosphatase 79 U/L (46-116); Anion Gap 10.8 mmol/L (3-11); BUN 31 mg/dL (7-18); Bilirubin, Total 0.8 mg/dL (0.2-1.0); CO2 26.2 mmol/L (21.0-32.0); CREATININE 1.19 mg/dL (0.70-1.30); Calculated LDL 89 mg/dL (<100); Chloride 104 mmol/L (98-107); Cholesterol 155 mg/dL (<200); Glucose 102 mg/dL (74-106); HDL Cholesterol 36 mg/dL (40-60); Potassium 3.9 mmol/L (3.5-5.1); Sodium 141 mmol/L (136-145); TSH (W/Ref FT4) 0.92 uIU/mL (0.36-3.74); Total Protein 6.6 g/dL (6.4-8.2); Triglyceride 153 mg/dL (<150)
== END 2020-03-02 08:51 ==
PROVIDERS: PCP Nurse Practitioner Adult Health; Visit Provider Nurse Practitioner Adult Health
DX: I10 Essential (primary) hypertension (principal); E11.9 Type 2 diabetes mellitus without complications; E78.5 Hyperlipidemia, unspecified; F32.9 Major depressive disorder, single episode, unspecified
CPT/HCPCS: 36415; 80053; 80061; 82043; 82570; 83036; 84443

== ENCOUNTER 2020-03-09 04:06 | Outpatient (CLI) | payer MEDICARE, BC, SELFPAY ==
--- NOTE | 2020-03-09 06:15 | DI.US_ITS ---
EXAM: US ABDOMEN CLINICAL HISTORY: assess liver,HEPATOMEGALY,R16.0 TECHNIQUE: Ultrasound performed using standard protocol. COMPARISON: US US OR ANESTHESIA from 08/08/2019 FINDINGS: The examination is technically limited due to the patient's body habitus. There is increased hepatic echogenicity and decreased through transmission hepatic parenchyma. Significant portions of were no nvisualized. There is no evidence of cholelithiasis or biliary dilatation. Pancreas is incompletely visualized bu t grossly intact as seen. Incidental 2 cm left renal cyst noted. Otherwise right and left kidneys a re unremarkable with no evidence of hydronephrosis or nephrolithiasis. Spleen appears borderline enlarged but shows normal echogenicity. Abdominal aorta and IVC are of normal diameter. IMPRESSION: Probable hepatic steatosis. Mild splenomegaly. No evidence of cholelithiasis. DATA REPOSITORY:
== END 2020-03-09 04:26 ==
PROVIDERS: PCP Nurse Practitioner Adult Health; Visit Provider Nurse Practitioner Adult Health
DX: R16.2 Hepatomegaly with splenomegaly, not elsewhere classified (principal); K62.5 Hemorrhage of anus and rectum; Z86.010 Personal history of colon polyps; F40.231 Fear of injections and transfusions; I10 Essential (primary) hypertension; E11.9 Type 2 diabetes mellitus without complications
CPT/HCPCS: 99213; 76700

== ENCOUNTER 2020-03-20 05:30 | Outpatient (CLI) | payer MEDICARE, BC, SELFPAY ==
--- NOTE | 2020-03-20 11:00 | NS.NUTBLAN_ITS ---
Medical Nutrition Therapy provided for Ace. Today is a return visit. Wt: 293 lbs, down 7 lbs in last 30 days. Recent Labs (03/02/20) A1C: 5.9%, tri, LDL: 89, HDL: 36. Ace reports significant reduction in simple carbohydrates since last visit. No longer goes out for breakfast, and has cut out desserts, white bread, soda and most packaged foods, has reduced meals in restaurants to 2 or less per week. He has not started formal exercise program but is willing to track steps on his fit bit. Reviewed recent labs with Ace, A1C is excellent but could use a boost to his HDL. Encouraged daily walking of 30 min to help increase HDL and to help continued weight loss. Reviewed meal options, has started to skip meals. Discussed in length, that eating meals at scheduled times ideal for continued weight loss and that meal skipping decreasing metabolic rate. Goal: 5-10 lbs weight loss per month. Goal weight: 250 mg/dl Plan: continue to follow lower carb meal plan and start walking regime of 7 miles weekly, follow up appt. scheduled for 04/17/20 at 10 am.
== END 2020-03-20 05:50 ==
PROVIDERS: PCP Nurse Practitioner Adult Health; Visit Provider Dietitian, Registered
DX: E11.9 Type 2 diabetes mellitus without complications (principal); Z71.3 Dietary counseling and surveillance
CPT/HCPCS: 97803

== ENCOUNTER 2020-03-21 06:58 | Day surgery (SDC) | payer MEDICARE, BC, SELFPAY ==
[2020-03-21 06:38] VITALS: BP 126/69; PULSE 58; RESP 16; TEMP 36.5; O2SAT 97
--- NOTE | 2020-03-21 06:43 | COLE_ITS ---
Date of service: 03/21/20 Time of Service: 07:30 Colonoscopy Report Date of procedure: 03/21/20 Pre-op diagnosis general: Bright blood per rectum, hx of adenomatous polyps Post-op diagnosis procedure note: other (Severe gonzalez diverticulosis, multiple issa yps and Grade 3 internal hemorrhoids) Procedure: Colonoscopy with polypectomy and internal hemorrhoid banding x2 Surgeon: Roxi Huang Anesthesia proc note operative: other (General/ ASA 3/Abel Holloway, [facility]) Estimated blood loss (mL): 3 Pathology: other (Ascending polyps x4, bx of descending colon and rectal polyp) Complications: None Disposition: same day Indications: Mr. Frias is a pleasant 69-year-old gentleman who is here today for rectal bleeding and discussion on possible colonoscopy. He tells me that he has had rectal bleeding in the past but over the last month it has been quite a bit more than normal for him. He denies any pain. He feels that sometimes he has more bleeding when he has to strain but that is not always the case. He had a colonoscopy in 2013 because of rectal bleeding and was found to have 3 tubular adenomas. He had another colonoscopy in 2017 and at that time had one tubular adenoma. He was asked to come back in 5 years for another colonoscopy. He also underwent 2 exams under anesthesia with internal hemorrhoid banding by Dr. Rubio both in 2017. He tells me that at that time he had a large hemorrhoid that would come out and he would have to push it back in. He has not had that issue this time. He has no family history of colon cancer. He has had no major changes in his bowel habits. He has had no unintentional weight loss. Prep: Miralax/Dulcolax Procedure Start Time: 08:49 Procedure End Time: 09:13 Retraction Time: 9 minutes Findings: 5 small polyps Pandiverticulosis Internal hemorrhoids Procedure Description: After informed consent was obtained the patient was taken to the procedure room and placed in a left decubitous position. Monitors were applied and a time out was done. The patients name, date of , procedure, allergies to medications and metal in their body was reviewed. The patient was then sedated. Once sedated and comfortable a rectal exam was done. External exam was normal. Internal exam revealed a normal sphincter tone and no palpable masses. I was unable to feel the prostate due to the patients body habitus. The scope was then introduced and retro-flexed. Grade 3 internal hemorrhoids were identified at the 3 and 9 o'clock position. The scope was then advanced to the cecum without difficulty. The ileocecal valve and appendiceal orifice were identified. The prep was good. The scope was then slowly retracted over 26 minutes back into the rectum. Polyps were removed with cold forceps in the ascending colon x4, and the rectum x1. Biopsies were done with cold forceps in the descending colon. There was inflammation noted, most likely acute due to the prep. The scope was removed. A lighted anoscope was introduced and the 2 Grade 3 internal hemorrhoids were banded. At this point the patient was woken up and taken back to Same day surgery in stable condition. The patient tolerated the procedure well and there were no immediate complications. Follow up: The patient should follow up in 3-5 years unless they develop changes in bowel habits or other new gastrointestinal complaints.
--- NOTE | 2020-03-21 06:44 | W.PM.DSUDISC ---
Discharge Plan Disposition Patient Disposition: HOME Condition: Good Discharge Details Reason For Visit: Bright red blood per rectum and hx of polyps Attending Provider: Roxi Huang Primary Care Provider: Brandy Mckeon Home Meds and New Rx's Prescriptions: Continued ibuprofen 800 mg tablet 400 - 800 mg PO BID PRN (Reason: pain) Qty: 60 RF: 1 sertraline 100 mg tablet 100 mg PO DAILY Qty: 90 RF: 3 aspirin 81 MG tablet,delayed release (DR/EC) 81 mg PO DAILY RF: 0 (DME) blood-glucose meter 1 EACH misc 1 ea Miscellaneous DAILY Qty: 1 RF: 0 (DME) Blood Glucose Test 1 EACH strip 1 ea Miscellaneous DAILY Qty: 100 RF: 3 (DME) lancets 1 EACH misc 1 ea Miscellaneous DAILY Qty: 100 RF: 3 losartan-hydrochlorothiazide 100-12.5 mg tablet 1 tab PO DAILY Qty: 90 RF: 3 atorvastatin 80 mg tablet 80 mg PO HS Qty: 90 RF: 1 trazodone 100 mg tablet 100 mg PO QHS PRN (Reason: sleep) Qty: 90 RF: 3 ciclopirox 0.77 % cream 1 applic TP BID RF: 0 lorazepam [Ativan] 0.5 mg tablet 0.5 mg PO DAILY PRN (Reason: anxiety) Qty: 1 RF: 0 cholecalciferol (vitamin D3) 5,000 UNIT capsule 2 tab PO DAILY RF: 0 [place] Plus Cold (PE) 2-7.8-325 mg Tablet, Effervescent PO PRNRF: 0 gabapentin 800 mg tablet 1,200 mg PO DIRECTED RF: 0 Discharge Instructions Instructions: Diverticulosis (DC), Hemorrhoids (DC), Rubber Band Ligation (DC), Colorectal Polyps (DC) Additional Instructions: Findings: Diverticulosis Internal hemorrhoids (Banded 2) Multiple small polyps Follow up: 3-5 years depending on final pathology If bleeding persists may need a more formal hemorrhoidectomy Please call if you develop: fevers >101.5 Nausea or Vomiting Abdominal pain that is not transient DAY SURGERY UNIT POST ENDOSCOPY INSTRUCTIONS 1. Because there will be medication in your system for the next 24 hours, you may feel a little sleepy. Your coordination will be affected. Therefore: a. Do not drive or operate dangerous equipment for 24 hours. b. Do not drink alcohol beverages for 24 hours (not even beer). c. Plan to go home and rest for the day. 2. Generally there are no restrictions on your activity after a day or so has gone by, but you may feel a bit fatigued for a few days. 3 After you arrive home you may have a light meal and return to a normal diet as you can tolerate it without feeling sick to your stomach. 4. After surgery, you may feel pain or discomfort. This should be only transient, but if it persists please contact your doctor. 5. If there are any questions regarding the findings of your procedure, please feel free to contact your doctor. 6. If you are unable to contact your doctor with a problem, contact the hospital at [phone]. 7. Continue all your regular medications unless directed otherwise. I understand the above instructions and have no questions. Signature of Patient or Responsible Adult Escort Date/Time Name of Responsible Adult Escort Signature of Nurse Date/Time Activity:: Activity as Tolerated Diet:: High Fiber diet Discharge Orders Discharge Orders: Discharge Order (Routine); Ordered 03/21/20 Ordered By: Roxi Huang
[2020-03-21] MEDS: Lactated Ringers 1,000 ML 80 ML IV (07:11)
[2020-03-21] MEDS: Midazolam/Ketamine/Ondansetron (3/25/2MG) 1 TAB 1 EACH SL (07:20)
--- NOTE | 2020-03-21 07:47 | BOWEL_PTH ---
PATIENT: Ace Frias LOC: [facility] U#:[id number] AGE/SX: 69/M ROOM: RE03/21/[address]: Roxi Huang MD : [id number] BED: DIS: 03/21/2020 SPEC #: [id number] RECD: 03/21/20 12:51 STATUS: OSMAR RE #: [id number] SHYLA: 03/21/20 07:[address]: Roxi Huang DEPT: Surgical Specimen RECD BY: Anabel Kim ENTERED: 03/21/20 12:52 SP TYPE: Bowel OTHR DR: Brandy Mckeon, NATALIE Tissues: 1 - BIOPSY BOWEL 2 - BIOPSY BOWEL 3 - BIOPSY BOWEL Procedures: GROSS AND MICRO LEVEL 4 Comments: [id number]
[2020-03-21 10:22] VITALS: BP 140/79; PULSE 57; RESP 16; TEMP 36.7; O2SAT 96
== END 2020-03-21 10:45 | disposition home or self-care (01) ==
PROVIDERS: PCP Nurse Practitioner Adult Health; Visit Provider Surgery
PROC: 0DJD8ZZ Inspection of Lower Intestinal Tract, Via Natural or Artificial Opening Endoscopic (ICD-10-PCS; CPT 45378; principal; 2020-03-21 07:30)
DX: K62.5 Hemorrhage of anus and rectum (principal); Z86.010 Personal history of colon polyps; D12.2 Benign neoplasm of ascending colon; K62.1 Rectal polyp
CPT/HCPCS: 45380; 88305; J2001; J2250; J2704

== ENCOUNTER → 2020-03-27 08:58 | Outpatient (BNVA) | payer MEDICARE, BC, SELFPAY | PROVIDERS: PCP Nurse Practitioner Adult Health; Referring Provider Nurse Practitioner Adult Health; Visit Provider Orthopaedic Surgery | DX: Z47.89 Encounter for other orthopedic aftercare; M75.101 Unspecified rotator cuff tear or rupture of right shoulder, not specified as traumatic; M12.811 Other specific arthropathies, not elsewhere classified, right shoulder; I10 Essential (primary) hypertension | CPT/HCPCS: 99213 ==

== ENCOUNTER 2020-04-10 01:42 | Outpatient (CLI) | payer MEDICARE, BC, SELFPAY ==
--- NOTE | 2020-04-10 07:15 | DI.CT_ITS ---
EXAM: CT ABDOMEN WO CLINICAL HISTORY: SPLENOMEGALY,HEPATOMEGALY,R61.0,R16.0. TECHNIQUE: Imaging Protocol: Axial computed tomography images with coronal and sagittal reformatted images were created and reviewed CONTRAST MATERIAL: Intravenous:Omnipaque 350 Contrast volume:None- Oral: yes / US US ABDOMEN from 03/09/2020 FINDINGS: ABDOMEN: Lung Bases: Normal where visualized. The heart appears mildly enlarged. Liver: mild hepatic steatosis. No measurable mass. Gallbladder and biliary tract: No radiodense calculus or dilation. Pancreas: Normal density, no abnormal calcifications or inflammatory process. Spleen: Normal. 10.9 cm in length. Kidneys: Normal size, contour and axis. Small nonobstructing stone near the lower pole of the right kidney. Small left renal cyst.. No masses seen. Adrenal glands: No masses seen. Abdominal Aorta: Abdominal portion non-dilated. Moderate calcification. Bowel: No dilatation or wall thickening. Diverticulosis of the descending colon. IMPRESSION: Mild hepatic steatosis. Spleen appears normal in size. No liver mass or other acute acute abnormali ty is seen.. RADIATION DOSE DELIVERED: 848.24mGy.cm Total DLP DATA REPOSITORY: All CT scans at this facility are submitted to the National Radiology Data Registry (NRDR) Dose Index Registry (DIR) with the [employer] ([employer]). RADIATION OPTIMIZATION: All CT scans at this facility use at least one of these dose optimization te chniques: automated exposure control; mA and/or kV adjustment per patient size (includes targeted exa ms where dose is matched to clinical indication); or iterative reconstruction.
[2020-04-10] MEDS: Omnipaque 350 MG/ML 50 ML BTL IJ (08:45)
[2020-04-10] MEDS: Breeza Beverage 473 ML BTL PO (08:52)
== END 2020-04-10 02:02 ==
PROVIDERS: PCP Nurse Practitioner Adult Health; Visit Provider Nurse Practitioner Adult Health
DX: R16.2 Hepatomegaly with splenomegaly, not elsewhere classified (principal); K76.0 Fatty (change of) liver, not elsewhere classified
CPT/HCPCS: 74150; Q9967

== ENCOUNTER 2020-04-24 01:51 | Outpatient (CLI) | payer MEDICARE, BC, SELFPAY ==
--- NOTE | 2020-04-24 11:00 | NS.NUTBLAN_ITS ---
Medical Nutrition Therapy provided for Ace today. Follow up x 3 for diet controlled diabetes and weight management. Wt: 292lbs. Has lost 8 lbs in last 8 weeks. Ace reports he no longer is going to physical therapy but is very active during day moving and cleaning up house that is going up for sale in spring. He reports following mostly low carb diet but tends to skip lunch- but nibbles on candy and nuts druing day. No formal exercise regime followed. We discussed ways to increase metabolic rate and help encourage weight loss with goal of 5-10 lbs per month. He has stopped eating out for breakfast and has stopped drinking alcohol. He is frustrated that he has not seen any weight loss in last 4 weeks. Lack of weight loss most likely due to erratic meal schedule, not meeting protein requirements and lack of formal exercise. Provided recipes for lunch and dinner that focused on lower carb meals, lean protein and high amounts of non starchy vegetables. Also encouraged Ace to walk 1 mile daily and to find a way to exercise daily in winter time. He is interested in joining a local gym. Plan: [id number] kcal, 70-80 g protein daily, 3 meals daily. 2. walking regime - 7-10 miles weekly. $. no follow up planned today, Ace to call for next appt.
== END 2020-04-24 02:11 ==
PROVIDERS: PCP Nurse Practitioner Adult Health; Visit Provider Dietitian, Registered
DX: E11.9 Type 2 diabetes mellitus without complications (principal); E66.01 Morbid (severe) obesity due to excess calories; Z71.3 Dietary counseling and surveillance
CPT/HCPCS: 97803

== ENCOUNTER → 2020-04-25 13:47 | Outpatient (BNVA) | payer MEDICARE, BC, SELFPAY | PROVIDERS: PCP Nurse Practitioner Adult Health; Referring Provider Nurse Practitioner Adult Health; Visit Provider Psychiatry & Neurology Neurology | DX: E11.42 Type 2 diabetes mellitus with diabetic polyneuropathy (principal); D80.1 Nonfamilial hypogammaglobulinemia; G56.03 Carpal tunnel syndrome, bilateral upper limbs | CPT/HCPCS: 99213 ==

== ENCOUNTER → 2020-05-04 08:59 | Outpatient (BNVA) | payer MEDICARE, BC, SELFPAY | PROVIDERS: PCP Nurse Practitioner Adult Health; Referring Provider Nurse Practitioner Adult Health; Visit Provider Surgery | DX: M62.58 Muscle wasting and atrophy, not elsewhere classified, other site (principal); K42.9 Umbilical hernia without obstruction or gangrene; I10 Essential (primary) hypertension | CPT/HCPCS: 99213 ==

== ENCOUNTER 2020-05-17 00:38 | Outpatient (CLI) | payer MEDICARE, BC, SELFPAY ==
--- NOTE | 2020-05-17 06:30 | DI.RAD_ITS ---
EXAM: XR CHEST 2V PA LATERAL CLINICAL HISTORY: assess heart size on X-R, enlarged on CT,CARDIOMEGALY,,I51.7 TECHNIQUE: 2D digital imaging was performed. COMPARISON: CT CT ABDOMEN WO from 04/10/2020 FINDINGS: MEDIASTINUM: Normal. HEART: Mild cardiomegaly. PULMONARY VASCULATURE: Normal. LUNGS: Clear. PLEURAL SPACE: No pleural effusion or pneumothorax. BONE:Within normal limits for the patient's age. OTHER FINDINGS:Normal. IMPRESSION: No acute pulmonary findings. Mild cardiomegaly. DATA REPOSITORY: RADIATION DOSE DELIVERED:
== END 2020-05-17 00:58 ==
PROVIDERS: PCP Nurse Practitioner Adult Health; Visit Provider Nurse Practitioner Adult Health
DX: I51.7 Cardiomegaly (principal)
CPT/HCPCS: 71046

== ENCOUNTER 2021-01-11 02:24 | Outpatient (CLI) | payer MEDICARE, BC, SELFPAY ==
[2021-01-11 12:21] LABS: Hemoglobin A1C 5.8 % (<5.7)
[2021-01-11 12:41] LABS: ALT 40 U/L (16-63); AST 32 U/L (15-37); Albumin 3.7 g/dL (3.4-5.0); Alkaline Phosphatase 84 U/L (46-116); Anion Gap 8.5 mmol/L (3-11); BUN 26 mg/dL (7-18); Bilirubin, Total 0.9 mg/dL (0.2-1.0); CO2 31.5 mmol/L (21.0-32.0); CREATININE 1.2 mg/dL (0.70-1.30); Calcium 8.7 mg/dL (8.5-10.1); Calculated LDL 95 mg/dL (<100); Chloride 105 mmol/L (98-107); Cholesterol 175 mg/dL (<200); Estimated GFR 59.51 (mL/min/1.73m2); Glucose 114 mg/dL (74-106); HDL Cholesterol 46 mg/dL (40-60); Potassium 3.8 mmol/L (3.5-5.1); Sodium 145 mmol/L (136-145); Total Protein 6.6 g/dL (6.4-8.2); Triglyceride 172 mg/dL (<150)
[2021-01-11 12:46] LABS: COMMENT (LAB VIEW ONLY) 209.01 mg/dL
[2021-01-11 12:47] LABS: Microalb ug/mg Crea 299.9 ug/mg Cr
== END 2021-01-11 02:25 | disposition home or self-care (01) ==
LOC: LBO 02:24
PROVIDERS: PCP Nurse Practitioner Adult Health; Visit Provider Nurse Practitioner Adult Health
DX: E11.9 Type 2 diabetes mellitus without complications (principal); E78.5 Hyperlipidemia, unspecified; I10 Essential (primary) hypertension; K76.0 Fatty (change of) liver, not elsewhere classified; E66.9 Obesity, unspecified
CPT/HCPCS: 36415; 80053; 80061; 82043; 82570; 83036

== ENCOUNTER 2021-01-18 08:16 | Outpatient (CLI) | payer MEDICARE, BC, SELFPAY ==
[2021-01-19 13:00] LABS: COVID-19 RT-PCR UVMMC Result Negative (Negative)
== END 2021-01-18 08:17 | disposition home or self-care (01) ==
PROVIDERS: PCP Nurse Practitioner Adult Health; Visit Provider Nurse Practitioner Adult Health
DX: Z20.822 Contact with and (suspected) exposure to COVID-19 (principal)
CPT/HCPCS: U0003; U0005